=== PATIENT | male | born 1950 | race Caucasian/White ===

== ENCOUNTER 2016-12-30 09:18 | Outpatient (CLI) | payer MEDICARE, OTHER | END 2016-12-30 09:19 | disposition home or self-care (01) | DX: R97.20 Elevated prostate specific antigen [PSA] (principal); C67.9 Malignant neoplasm of bladder, unspecified ==

== ENCOUNTER 2017-03-29 13:34 | Outpatient (CLI) | payer MEDICARE, OTHER ==
--- NOTE | 2017-03-30 09:17 | XRAY Report ---
THREE-VIEW LEFT ELBOW: 03/29/2017 CLINICAL INDICATION: Pain, swelling. FINDINGS: AP, lateral, oblique views of the left elbow demonstrate mild osteoarthritis. There is no evidence of acute fracture. No effusion is present. Medial soft tissue swelling is seen. No radio paque foreign body is appreciated in the soft tissue. No osteolysis is present to suggest osteomyeli tis. IMPRESSION: MILD OSTEOARTHRITIS. SOFT TISSUE SWELLING, BUT NO EVIDENCE OF OSTEOMYELITIS OR FOREIGN BODY. JOB #: [id number] EXT JOB #:[id number]
== END 2017-03-29 13:35 | disposition home or self-care (01) ==
LOC: DI 13:34
PROVIDERS: ATTEND Nurse Practitioner Family
DX: M19.022 Primary osteoarthritis, left elbow (principal)

== ENCOUNTER 2017-07-09 18:18 | Emergency (ER) | payer MEDICARE, OTHER ==
[2017-07-09] MEDS ORDERED: KETOROLAC 60 MG/2 ML VIAL IVP STA (18:52)
--- NOTE | 2017-07-09 18:56 | ED Physician Documentation ---
PD HPI CHEST PAIN - Stated complaint Stated Complaint: CHEST PX - Chief complaint Chief Complaint: Cardiac - History obtained from History obtained from: Patient, Family - History of Present Illness Timing - onset: How many hours ago (5) Timing - onset during: Rest Timing - duration: Hours (5) Timing - details: Abrupt onset Pain level max: 8 Pain level now: 8 Quality: Aching, Pain Location: Substernal, Left chest Radiation: Other (non-radiating) Improved by: Rest Worsened by: Inspiration, Movement, Palpation Associated symptoms: No: Shortness of air, Diaphoresis, Nausea, Vomiting, Feeling faint / dizzy, General Weakness, Palpitations, Cough Similar symptoms before: Has not had sx before Recently seen: Not recently seen - Additional information Additional information: states tripped and fell into a chair 3 days ago, states pain worsened today. Review of Systems Ten Systems: 10 systems reviewed and negative Constitutional: denies: Fever, Chills Ears: denies: Ear pain Nose: denies: Rhinorrhea / runny nose, Congestion Throat: denies: Sore throat Cardiac: denies: Palpitations Respiratory: denies: Cough, Hemoptysis, Wheezing GI: denies: Abdominal Pain, Nausea, Vomiting, Diarrhea, Hematemesis, Bloody / black stool : denies: Dysuria Skin: denies: Rash Musculoskeletal: denies: Neck pain, Back pain Neurologic: denies: Focal weakness, Numbness, Headache PD PAST MEDICAL HISTORY - Past Medical History Cardiovascular: Hypertension Respiratory: None Neuro: None Endocrine/Autoimmune: None GI: Colon polyps, Hemorrhoids : Other HEENT: Chronic vision loss Psych: None Musculoskeletal: None Derm: Psoriasis - Past Surgical History Past Surgical History: Yes General: Colonoscopy, Other Ortho: Arthroscopic surgery, Spine surgery HEENT: Tonsil/Adenoidectomy - Present Medications Home Medications: Ambulatory Orders Medication Instructions Recorded Confirmed Gabapentin 300 mg PO BID 06/10/15 07/09/17 Lisinopril 20 mg PO DAILY 06/10/15 07/09/17 Multivitamin [Multivitamins] 1 each PO DAILY 11/25/15 07/09/17 Sildenafil Citrate [Sildenafil] 100 mg PO DAILY PRN 11/25/15 07/09/17 Aspirin [Aspir-Low] 81 mg PO DAILY 12/16/15 07/09/17 Betamethasone Dipropionate 15 gm TP PRN PRN 07/05/17 07/09/17 Baclofen 10 mg PO 07/09/17 Meloxicam [Mobic] 7.5 mg PO BID PRN #20 tablet 07/09/17 - Allergies Allergies/Adverse Reactions: Allergies Allergy/AdvReac Type Severity Reaction Status Date / Time No Known Drug Allergies Allergy Verified 07/09/17 18:32 - Social History Does the pt smoke?: No Smoking Status: Never smoker Does the pt have substance abuse?: No - Immunizations Immunizations are current?: Yes PD ED PE NORMAL - Vitals Vital signs reviewed: Yes - General General: Alert and oriented X 3, No acute distress, Well developed/nourished - HEENT HEENT: PERRL, Moist mucous membranes - Neck Neck: Supple, no meningeal sign - Cardiac Cardiac: RRR, No murmur, No rub, Strong equal pulses - Respiratory Respiratory: No respiratory distress, Clear bilaterally - Abdomen Abdomen: Soft, Non tender, Non distended - Derm Derm: Warm and dry, No rash - Extremities Extremities: No edema, No calf tenderness / cord - Neuro Neuro: Alert and oriented X 3 - Psych Psych: Normal mood, Normal affect - Free text exam Free text exam: TTP across the anterior, upper chest wall. Reproduces his pain. Results - Vitals Vitals: Vital Signs - 24 hr 07/09/17 07/09/17 18:27 20:12 Temperature 36.9 C Heart Rate 53 L 62 Respiratory 20 18 Rate Blood Pressure 153/78 H 148/83 H O2 Saturation 96 94 Oxygen O2 Source Room air - EKG (time done) 1828 Rate: Rate (enter#) (56) Rhythm: NSR Girard: Normal Intervals: Normal OK QRS: Normal Ischemia: Normal ST segments - Labs Labs: Laboratory Tests 07/09/17 07/09/17 07/09/17 19:01 19:01 19:01 WBC 7.5 RBC 4.89 Hgb 15.2 Hct 44.3 MCV 90.7 MCH 31.1 H MCHC 34.3 RDW 14.6 Plt Count 155 MPV 7.8 Neut # 6.0 Lymph # 0.8 L Hancock # 0.5 Eos # 0.1 Baso # 0.0 Absolute Nucleated RBC 0.00 Nucleated RBC % 0.0 Sodium 138 Potassium 3.6 Chloride 104 Carbon Dioxide 24 Anion Gap 10.0 BUN 16 Creatinine 0.8 Estimated GFR (MDRD) 97 Glucose 98 Calcium 9.6 Total Bilirubin 0.5 AST 19 ALT 20 Alkaline Phosphatase 59 Troponin I < 0.04 Total Protein 6.9 Albumin 4.3 Globulin 2.6 Albumin/Globulin Ratio 1.7 Lipase 24 - Rads (name of study) cxr Radiology: Prelim report reviewed, EMP read contemporaneously, See rad report ( NAD) PD MEDICAL DECISION MAKING - ED course Complexity details: reviewed results, re-evaluated patient, considered differential (No ST elevation [place], no aortic dissection, no PE, no tension pneumothorax, no aortic aneurysm), d/w patient, d/w family ED course: Patient is a 67-year-old gentleman who presents to the emergency department with chest pain, appears to be chest wall pain. Worse with movement and breathing. No acute findings on EKG, chest x-ray. Pain greatly improved with Toradol. Will place on anti-inflammatories for home. No evidence of acute coronary syndrome, pulmonary embolus. No evidence of pneumothorax or hemothorax. Patient and family counseled regarding signs and symptoms for which I believe and urgent re-evaluation would be necessary. Patient with good understanding of and agreement to plan and is comfortable going home at this time This document was made in part using voice recognition software. While efforts are made to proofread this document, sound alike and grammatical errors may occur. No history of blood clots. No recent travel. No immobilization or surgery Departure - Departure Disposition: 01 Home, Self Care Clinical Impression: Chest wall pain Condition: Good Instructions: ED Contusion Chest Wall Follow-Up: Josemanuel Hurst MD [Primary Care Provider] - Within 1 week Prescriptions: Meloxicam [Mobic] 7.5 mg PO BID PRN #20 tablet PRN Reason: pain Comments: This should improve over the next few days. Return if you worsen. Discharge Date/Time: 07/09/17 20:24
[2017-07-09] MEDS ORDERED: KETOROLAC 30 MG/ML VIAL ONE (19:02)
[2017-07-09 19:35] LABS: BASOPHILS % (AUTO) 0.5 %; EOSINOPHILS # (AUTO) 0.1 10^3/uL (0.0-0.7); HCT - HEMATOCRIT 44.3 % (42.0-52.0); HGB - HEMOGLOBIN 15.2 g/dL (14.0-18.0); LYMPHOCYTES # (AUTO) 0.8 10^3/uL (1.5-3.5); LYMPHOCYTES % (AUTO) 11.1 %; MEAN CORPUSCULAR HEMOGLOBIN 31.1 pg (27.0-31.0); MEAN CORPUSCULAR HGB CONC 34.3 g/dL (32.0-36.0); MEAN CORPUSCULAR VOLUME 90.7 fL (80.0-94.0); MEAN PLATELET VOLUME 7.8 fL (7.4-11.4); MONOCYTES # (AUTO) 0.5 10^3/uL (0.0-1.0); MONOCYTES % (AUTO) 6.8 %; NEUTROPHILS % (AUTO) 80.6 %; RED BLOOD COUNT 4.89 10^6/uL (4.70-6.10); RED CELL DISTRIBUTION WIDTH 14.6 % (12.0-15.0); UNCORRECTED WHITE BLOOD COUNT 7.5 x10^3/uL; WHITE BLOOD COUNT 7.5 x10^3/uL (4.8-10.8)
[2017-07-09 19:44] LABS: ALBUMIN/GLOBULIN RATIO 1.7 (1.0-2.2); BILIRUBIN,TOTAL 0.5 mg/dL (0.2-1.0); CALCIUM 9.6 mg/dL (8.5-10.3); CREATININE 0.8 mg/dL (0.6-1.2); POTASSIUM 3.6 mmol/L (3.5-5.0); TOTAL PROTEIN 6.9 g/dL (6.7-8.2)
--- NOTE | 2017-07-09 19:46 | XRAY Preliminary Report ---
Exam: XR CHEST 1 VIEW IMPRESSION: Mildly low lung volumes. [facility] SITE ID: [id number]
--- NOTE | 2017-07-09 19:57 | XRAY Report ---
EXAM: CHEST RADIOGRAPHY EXAM DATE: 07/09/2017 07:11 p.m. CLINICAL HISTORY: Chest pain after a fall. COMPARISON: 03/15/2016. TECHNIQUE: 1 view. FINDINGS: Lungs/Pleura: Moderate elevation of both hemidiaphragms. Small amount of plate-like atelectasis at th e right base. No vascular congestion, pneumothorax nor effusion. Mediastinum: Within exam limitations, the cardiomediastinal contour is normal. Other: None. IMPRESSION: Mildly low lung volumes. [facility] Referring Provider Line: [phone] SITE ID: [id number]
[2017-07-09 20:14] VITALS: BP 148/83
== END 2017-07-09 20:24 | disposition home or self-care (01) ==
LOC: ED 18:18
DX: R07.89 Other chest pain (principal); I10 Essential (primary) hypertension; Z79.82 Long term (current) use of aspirin; Z91.81 History of falling
CPT/HCPCS: 36415; 71010; 80053; 83690; 84484; 85025; 93005; 96374; 99284; 99285

== ENCOUNTER 2017-11-14 08:26 | Day surgery (SDC) | payer MEDICARE, OTHER ==
[2017-11-14] MEDS ORDERED: LACTATED RINGERS 1,000 ML IV ONE ×2 (08:31→10:36)
[2017-11-14] MEDS ORDERED: MIDAZOLAM 2 MG/2 ML VIAL IVP ONE (09:58)
[2017-11-14] MEDS ORDERED: fentaNYL 100 MCG/2 ML VIAL IVP ONE (09:58)
[2017-11-14 11:36] VITALS: BP 132/73
== END 2017-11-14 08:27 | disposition home or self-care (01) ==
LOC: SDS 08:26
PROVIDERS: ATTEND Surgery
PROC: 0DBK8ZX Excision of Ascending Colon, Via Natural or Artificial Opening Endoscopic, Diagnostic (ICD-10-PCS; 2017-11-14)
PROC: 0DBP8ZX Excision of Rectum, Via Natural or Artificial Opening Endoscopic, Diagnostic (ICD-10-PCS; principal; 2017-11-14 09:45)
DX: K57.30 Diverticulosis of large intestine without perforation or abscess without bleeding (principal); D21.4 Benign neoplasm of connective and other soft tissue of abdomen; K62.1 Rectal polyp; Z85.51 Personal history of malignant neoplasm of bladder; E78.5 Hyperlipidemia, unspecified; I10 Essential (primary) hypertension; Z85.79 Personal history of other malignant neoplasms of lymphoid, hematopoietic and related tissues; Z79.82 Long term (current) use of aspirin; Z87.891 Personal history of nicotine dependence
CPT/HCPCS: 45380; 45385; J7120

== ENCOUNTER 2019-08-16 15:12 | Emergency (ER) | payer MEDICARE, OTHER ==
--- NOTE | 2019-08-16 15:46 | ED Physician Documentation ---
History of Present Illness - Stated complaint Stated Complaint: ALLERGIC REACTION - Chief complaint Chief Complaint: Allergic Rx - History obtained from History obtained from: Patient, Family - History of Present Illness Timing: How many days ago (several days) Pain level max: 0 Pain level now: 0 - Additonal information Additional information: 69-year-old male presents to the emergency department with a rash. He is on Revlimid and daratumumab. States that he spoke with his oncologist 2 days ago and was told to take Benadryl. He states the rash is still persisting. Came to the emergency department for evaluation. He is supposed to have his next dose of chemotherapy tomorrow. No respiratory distress. No throat swelling. He takes dexamethasone once a week. Nothing makes this better or worse Review of Systems Constitutional: denies: Fever, Chills Nose: denies: Rhinorrhea / runny nose, Congestion Throat: denies: Sore throat Cardiac: denies: Palpitations Respiratory: denies: Dyspnea, Cough GI: denies: Abdominal Pain, Nausea, Vomiting : denies: Dysuria Skin: reports: Rash Musculoskeletal: denies: Neck pain, Back pain Neurologic: denies: Headache PD PAST MEDICAL HISTORY - Past Medical History Past Medical History: Yes Cardiovascular: Hypertension Respiratory: None Endocrine/Autoimmune: None GI: GERD, Colon polyps, Hemorrhoids : Benign prostate hypertrophy, Other HEENT: Chronic vision loss Psych: None Musculoskeletal: None Derm: Psoriasis - Past Surgical History Past Surgical History: Yes General: Colonoscopy, Other Ortho: Arthroscopic surgery, Spine surgery HEENT: Tonsil/Adenoidectomy - Present Medications Home Medications: Ambulatory Orders Medication Instructions Recorded Confirmed Gabapentin 300 mg PO BID 06/10/15 08/07/19 Lisinopril 20 mg PO DAILY 06/10/15 08/07/19 Multivitamin [Multivitamins] 1 each PO DAILY 11/25/15 08/07/19 Betamethasone Dipropionate 15 gm TP PRN PRN 07/05/17 08/07/19 Calcium Carbonate [Calcium] 1 tab PO BID 10/04/17 08/07/19 Turmeric Root Extract [Turmeric] 1 cap PO DAILY 01/03/18 08/07/19 dexAMETHasone [Dexamethasone] 20 mg ORAL PRN PRN 07/25/19 08/07/19 Lenalidomide [Revlimid] 15 mg PO DAILY 07/26/19 08/07/19 Methylprednisolone [Medrol Dose 20 mg PO DAILY PRN 08/09/19 08/09/19 Pack] hydrOXYzine PAMOATE [Vistaril] 25 mg PO Q6H PRN #20 capsule 08/16/19 predniSONE [Deltasone] 10 mg PO [id number] #42 tab 08/16/19 - Allergies Allergies/Adverse Reactions: Allergies Allergy/AdvReac Type Severity Reaction Status Date / Time No Known Drug Allergies Allergy Verified 08/16/19 15:20 - Social History Does the pt smoke?: No Smoking Status: Never smoker Does the pt have substance abuse?: No - Immunizations Immunizations are current?: Yes - POLST Patient has POLST: No PD ED PE NORMAL - Vitals Vital signs reviewed: Yes - General General: Alert and oriented X 3, No acute distress - HEENT HEENT: Moist mucous membranes - Neck Neck: Supple, no meningeal sign - Cardiac Cardiac: RRR - Respiratory Respiratory: No respiratory distress, Clear bilaterally - Derm Derm: Warm and dry - Extremities Extremities: Other (Erythematous, blanching rash to the forehead and scalp. No urticaria. No evidence of infection.) - Neuro Neuro: Alert and oriented X 3 Results - Vitals Vitals: Vital Signs - 24 hr 08/16/19 15:15 Temperature 36.6 C Heart Rate 76 Respiratory 16 Rate Blood Pressure 129/60 O2 Saturation 97 Oxygen O2 Source Room air PD MEDICAL DECISION MAKING - ED course Complexity details: reviewed old records, re-evaluated patient, considered differential, d/w patient, d/w family ED course: Discussed the case with Dr. Hill, oncology on-call, recommend starting a steroid taper. We will also place him on hydroxyzine for the itching. Patient is well-appearing, nontoxic. Afebrile. No anaphylaxis. Patient counseled regarding signs and symptoms for which I believe and urgent re-evaluation would be necessary. Patient with good understanding of and agreement to plan and is comfortable going home at this time This document was made in part using voice recognition software. While efforts are made to proofread this document, sound alike and grammatical errors may occur. He will follow-up with Dr. Garrett tomorrow for discussion of whether to continue the chemotherapy or not. Departure - Departure Disposition: 01 Home, Self Care Clinical Impression: Reaction, drug, adverse Qualifiers: Encounter type: initial encounter Qualified Code(s): T50.905A - Adverse effect of unspecified drugs, medicaments and biological substances, initial encounter Multiple myeloma Qualifiers: Multiple myeloma remission status: unspecified Qualified Code(s): C90.00 - Multiple myeloma not having achieved remission Condition: Good Instructions: ED Drug React Adverse Other Follow-Up: Josemanuel Hurst MD [Primary Care Provider] - Lisa Garrett MD [Physician No Access] - Lisa Garrett MD [Provider Admit Priv/Credential] - Prescriptions: hydrOXYzine PAMOATE [Vistaril] 25 mg PO Q6H PRN #20 capsule PRN Reason: itching predniSONE [Deltasone] 10 mg PO [id number] #42 tab Comments: I spoke with Dr. Hill on-call today for Dr. Alejo. We will start you on a steroid taper. You can contact her office tomorrow for further instructions.
[2019-08-16] MEDS ORDERED: predniSONE 20 MG TABLET PO STA (16:00)
[2019-08-16] MEDS ORDERED: hydrOXYzine PAMOATE 25 MG CAPSULE PO STA (16:00)
[2019-08-16 16:21] VITALS: BP 134/84
== END 2019-08-16 16:21 | disposition home or self-care (01) ==
LOC: ED 15:12
DX: L27.1 Localized skin eruption due to drugs and medicaments taken internally (principal); T45.1X5A Adverse effect of antineoplastic and immunosuppressive drugs, initial encounter; C90.00 Multiple myeloma not having achieved remission; I10 Essential (primary) hypertension
CPT/HCPCS: 99283; 99284; A9270; J7512

== ENCOUNTER 2019-10-01 11:43 | Emergency (ER) | payer MEDICARE, OTHER ==
--- NOTE | 2019-10-01 14:22 | ED Physician Documentation ---
History of Present Illness - Stated complaint Stated Complaint: LT LEG PX,SWELLING - Chief complaint Chief Complaint: Heent - History obtained from History obtained from: Patient - History of Present Illness Timing: Last night Pain level max: 3 Pain level now: 3 - Additonal information Additional information: 69-year-old male has noticed swelling to the left lower extremity. He is currently undergoing chemotherapy for multiple myeloma. No chest pain. No shortness of breath. No recent illnesses. No recent surgery or travel. He is not on blood thinners. No history of blood clot. Sent here to rule out DVT. Review of Systems Constitutional: denies: Fever, Chills GI: denies: Vomiting, Diarrhea Skin: denies: Rash Musculoskeletal: denies: Neck pain, Back pain Neurologic: denies: Focal weakness, Numbness PD PAST MEDICAL HISTORY - Past Medical History Past Medical History: Yes Cardiovascular: Hypertension Respiratory: None Neuro: None Endocrine/Autoimmune: None GI: Colon polyps, Hemorrhoids : Benign prostate hypertrophy, Other HEENT: Chronic vision loss Psych: None Musculoskeletal: None Derm: Psoriasis - Past Surgical History Past Surgical History: Yes General: Colonoscopy, Other Ortho: Spine surgery HEENT: Tonsil/Adenoidectomy - Present Medications Home Medications: Ambulatory Orders Medication Instructions Recorded Confirmed Gabapentin 300 mg PO BID 06/10/15 09/18/19 Lisinopril 20 mg PO DAILY 06/10/15 09/18/19 Multivitamin [Multivitamins] 1 each PO DAILY 11/25/15 09/18/19 Betamethasone Dipropionate 15 gm TP PRN PRN 07/05/17 09/18/19 Calcium Carbonate [Calcium] 1 tab PO BID 10/04/17 09/18/19 Turmeric Root Extract [Turmeric] 1 cap PO DAILY 01/03/18 09/18/19 dexAMETHasone [Dexamethasone] 20 mg ORAL PRN PRN 07/25/19 09/18/19 Lenalidomide [Revlimid] 15 mg PO DAILY 07/26/19 09/18/19 Methylprednisolone [Medrol Dose 20 mg PO DAILY PRN 08/09/19 09/18/19 Pack] hydrOXYzine PAMOATE [Vistaril] 25 mg PO Q6H PRN #20 capsule 08/16/19 09/18/19 predniSONE [Deltasone] 10 mg PO [id number] #42 tab 08/16/19 09/18/19 Baclofen 10 mg PO Q6H 09/18/19 09/18/19 Oxybutynin [Ditropan] 5 mg PO BID 09/18/19 09/18/19 polyethylene glycoL 3350 [Miralax] 17 gm PO DAILY 09/18/19 09/18/19 Rivaroxaban [Xarelto] 15 mg PO BID #42 tablet 10/01/19 - Allergies Allergies/Adverse Reactions: Allergies Allergy/AdvReac Type Severity Reaction Status Date / Time No Known Drug Allergies Allergy Verified 10/01/19 11:59 - Social History Does the pt smoke?: No Smoking Status: Never smoker ETOH Use: Beer Does the pt have substance abuse?: No Substance Use and Type: Other - Immunizations Immunizations are current?: Yes - POLST Patient has POLST: No PD ED PE NORMAL - Vitals Vital signs reviewed: Yes - General General: Alert and oriented X 3, No acute distress, Well developed/nourished - HEENT HEENT: Moist mucous membranes - Neck Neck: Supple, no meningeal sign - Cardiac Cardiac: RRR - Respiratory Respiratory: No respiratory distress, Clear bilaterally - Abdomen Abdomen: Soft, Non tender, Non distended - Derm Derm: Warm and dry - Extremities Extremities: Other (Moderate swelling to the left lower extremity from the mid thigh down to the toes. No calf tenderness. The left lower extremity is significantly swollen compared to the right. Neurovascular intact.) - Neuro Neuro: Alert and oriented X 3 - Psych Psych: Normal mood, Normal affect Results - Vitals Vitals: Vital Signs - 24 hr 10/01/19 10/01/19 10/01/19 11:59 12:03 15:34 Temperature 36.6 C 36.5 C 36.6 C Heart Rate 76 62 65 Respiratory 18 16 16 Rate Blood Pressure 122/73 113/61 127/71 O2 Saturation 98 98 98 Oxygen O2 Source Room air - Rads (name of study) Duplex ultrasound left lower extremity Radiology: Prelim report reviewed, EMP read contemporaneously, See rad report (NEw deep venous thrombosis in the left lower extremity from the femoral vein to the calf deep veins ) PD MEDICAL DECISION MAKING - ED course Complexity details: reviewed results, re-evaluated patient, considered differential, d/w patient, d/w consultant internship ED course: Patient with a DVT in the left lower extremity. Discussed the case with Dr. Padron, oncology. We will start the patient on Xarelto and have him transition to 20 mg of Xarelto daily after 3 weeks. No signs of infection. No shortness of breath. No chest pain. Patient counseled regarding signs and symptoms for which I believe and urgent re-evaluation would be necessary. Patient with good understanding of and agreement to plan and is comfortable going home at this time This document was made in part using voice recognition software. While efforts are made to proofread this document, sound alike and grammatical errors may occur. Departure - Departure Disposition: Home, Self Care Clinical Impression: DVT (deep venous thrombosis) Qualifiers: DVT location: lower extremity Affected thrombotic vein of extremity: unspecified vein of extremity Chronicity: acute Laterality: left Qualified Code(s): I82.402 - Acute embolism and thrombosis of unspecified deep veins of left lower extremity Condition: Good Instructions: ED DVT Follow-Up: Josemanuel Hurst MD [Primary Care Provider] - Within 1 week Prescriptions: Rivaroxaban [Xarelto] 15 mg PO BID #42 tablet Comments: Return if you worsen. We will start you on Xarelto 15 mg by mouth twice a day for 21 days. Your doctor will then need to transition you to 20 mg by mouth daily. Return for any signs of bleeding, blood in the stool, chest pain or shortness of breath. Refrain from any contact sports. If you fall and strike your head, you also need to be evaluated in the emergency department as this medication puts you at high risk for bleeding. Discharge Date/Time: 10/01/19 15:38
--- NOTE | 2019-10-01 14:28 | Ultrasound Report ---
Reason: LLE swelling Procedure Date: 10/01/2019 Accession Number: [id number] / [id number] Procedure: US - Duplex Ext Veins Left CPT Code: Addended Final Report FULL RESULT: EXAM: LEFT LOWER EXTREMITY VENOUS ULTRASOUND EXAM DATE: 10/01/2019 01:58 PM. CLINICAL HISTORY: LLE swelling. COMPARISON: DUPLEX EXT VEINS BILATERAL 03/15/2016 10:06 PM. TECHNIQUE: Real-time sonographic vascular imaging was performed by the carpenter repair through the lower extremity utilizing both color-flow and Doppler spectral analysis. Multiple enrollment representative static images were saved for review. FINDINGS: Common Femoral Vein (CFV): Normal. CFV-GSV Junction: Normal. Femoral Vein (FV) Prox: Thrombus present Femoral Vein (FV) Mid: Noncompressible thrombus Femoral Vein (FV) Dist: Noncompressible thrombus Popliteal Vein: Thrombus present Posterior Tibial Veins: Noncompressible thrombus Peroneal Veins: Noncompressible thrombus Other: None. IMPRESSION: NEw deep venous thrombosis in the left lower extremity from the femoral vein to the calf deep veins [facility] The critical result notification system was initiated by Dr. Abiodun Romero at 02:27 PM on 10/01/2019. ADDENDUM: 10/01/19 14:30 The above critical result findings were discussed with Garry Aaron by Dr. Abiodun Romero at 02:30 PM on 10/01/2019.
[2019-10-01 15:34] VITALS: BP 127/71
== END 2019-10-01 15:38 | disposition home or self-care (01) ==
LOC: ED 11:43
DX: I82.412 Acute embolism and thrombosis of left femoral vein (principal); I82.432 Acute embolism and thrombosis of left popliteal vein; I82.452 Acute embolism and thrombosis of left peroneal vein; I82.442 Acute embolism and thrombosis of left tibial vein; C90.00 Multiple myeloma not having achieved remission; I10 Essential (primary) hypertension
CPT/HCPCS: 99284

== ENCOUNTER 2019-10-17 14:34 | Outpatient (CLI) | payer MEDICARE, OTHER | END 2019-10-17 14:35 | disposition home or self-care (01) | LOC: LAB.S 14:34 | PROVIDERS: ATTEND Urology | DX: R97.20 Elevated prostate specific antigen [PSA] (principal) | CPT/HCPCS: 36415; G0103; 84153 ==

== ENCOUNTER 2019-10-26 09:53 | Outpatient (CLI) | payer MEDICARE, OTHER ==
--- NOTE | 2019-11-06 11:55 | DEXA Report ---
Reason: OSTEOPOROSIS, PATIENT HIGH DENSITY IN BACK L3-L4 FX Procedure Date: 10/26/2019 Accession Number: [id number] / [id number] Procedure: DEX - Dexa Forearm CPT Code: Final Report FULL RESULT: EXAM: Dexa Spine and/or Hip, Dexa Forearm DATE: 10/26/2019 12:24 PM CLINICAL HISTORY: OSTEOPOROSIS TECHNIQUE: Dual energy x-ray absorptiometry (DXA) was performed on a Ibetor System. Regions measured are the AP Spine, femoral neck, and if needed forearm. Form imaging is obtained due to scoliosis of the lumbar spine which limits diagnostic quality of DEXA images of the lumbar spine. COMPARISON: 08/29/2017. In accordance with the International Society for Clinical Densitometry (ISCD) guidelines, data from previous exams may be reanalyzed using current recommendations and techniques. This is done to allow a more accurate basis for comparison with the current study. FINDINGS: The data for the lumbar spine is as follows: BMD (g/cm/cm) T-SCORE Z-SCORE REGION L1 1.469 2.6 2.3 L2 1.470 1.9 1.7 L3 excluded L4 excluded TOTAL 1.470 2.2 2.0 NOTE: All evaluable vertebrae are used for classification The data for the hip is as follows: BMD (g/cm/cm) T-SCORE Z-SCORE REGION Neck 0.988 -0.6 0.0 TOTAL 0.951 -1.0 -0.8 NOTE: The femoral neck or total proximal femur, whichever is lowest, is used for classification. The data for the left forearm is as follows: BMD (g/cm/cm) T-SCORE Z-SCORE REGION 1/3 0.932 -0.6 0.2 NOTE: The 33% radius of the nondominant forearm is used for classification. DXA RESULTS SUMMARY: Spine SCAN DATE [age] BMD CHANGE VS CHANGE VS PREVIOUS PREVIOUS % 10[age]26/2019 [age] 1[age]470 0.060 4.3 08/29[birth year]2017 67.2 1[age]410 * Denotes significant change at the 95% confidence level. Denotes dissimilar scan types or analysis methods. DXA RESULTS SUMMARY: Hip SCAN DATE AGE BMD CHANGE VS CHANGE VS PREVIOUS PREVIOUS % 11/26/2019 69.4 0[age]951 0.014 1.5 08[birth year]29[birth year]2017 67.2 0.937 * Denotes significant change at the 95% confidence level. Denotes dissimilar scan types or analysis methods. IMPRESSION: THE WHO CLASSIFICATION BASED ON THE INTERNATIONAL REFERENCE STANDARD IS NORMAL. THE FRACTURE RISK IS NOT INCREASED. RECOMMENDATION: Patients with diagnosis of osteoporosis or osteopenia should have regular bone mineral density assessment. For those eligible for Medicare, routine testing is allowed once every 2 years. Testing frequency can be increased for patients who have rapidly progressing disease or for those who are receiving medical therapy to restore bone mass. COMMENT: World Health Organization (WHO) definitions for osteoporosis and osteopenia: NORMAL BMD: T-score at -1.0 or higher, fracture risk is low OSTEOPENIA BMD: T-score between -1.0 and -2.5, fracture risk is increased. OSTEOPOROSIS BMD: T-score at -2.5 or lower, fracture risk is high. National Osteoporosis Foundation recommends: 1. Obtain adequate dietary calcium (at least 1200 mg per day) and vitamin D (400-800 international units per day). 2. Participate, as appropriate, in regular weightbearing and muscle-strengthening exercise. 3. Avoid tobacco use and reduce alcohol and caffeine intake. 4. For more detailed information see the website at www.NOF.org.
== END 2019-10-26 09:54 | disposition home or self-care (01) ==
LOC: DI 09:53
PROVIDERS: ATTEND Registered Nurse
DX: M41.9 Scoliosis, unspecified (principal); Z79.52 Long term (current) use of systemic steroids; Z87.39 Personal history of other diseases of the musculoskeletal system and connective tissue
CPT/HCPCS: 77080; 77081

== ENCOUNTER 2020-03-08 09:30 | Outpatient (CLI) | payer MEDICARE, OTHER ==
--- NOTE | 2020-03-08 10:42 | Ultrasound Report ---
PROCEDURE: Duplex Ext Veins Left INDICATIONS: RULE OUT DVT TECHNIQUE: Real-time imaging, as well as color and pulse Doppler interrogation, were performed of the lower extr emity deep veins from the inguinal ligament to the popliteal fossa. COMPARISON: 10/01/2019. FINDINGS: Again noted is extensive venous thrombosis involving left superficial femoral vein extending to popli teal vein unchanged in appearance from previous study consistent with chronic deep venous thrombosis. Visualized portion of common femoral vein, greater saphenous vein and profundus femoris vein are pat ent without intraluminal filling defect. IMPRESSION: Chronic deep venous thrombosis in the left superficial femoral vein extending to the pop liteal vein. Reviewed by: Jonah Heath MD on 03/08/2020 10:41 AM PDT Approved by: Jonah Heath MD on 03/08/2020 10:41 AM PDT Station ID: [id number]
== END 2020-03-08 09:31 | disposition home or self-care (01) ==
LOC: DI 09:30
PROVIDERS: ATTEND Internal Medicine Hematology & Oncology
DX: I82.512 Chronic embolism and thrombosis of left femoral vein (principal)

== ENCOUNTER 2020-08-05 10:30 | Outpatient (CLI) | payer MEDICARE, OTHER ==
--- NOTE | 2020-08-05 15:34 | CONSULTATION NOTE ---
Palliative Care Consultation - Referral Referring Provider: Dr. Neeta Garrett Time of Visit: [id number] Referral setting: [facility] [place] Referral Reason: Pain of neoplastic origin/back pain/MM/Goals of Care - Information Sources Records reviewed: Previous records reviewed History/Review of Systems obtained from: Patient Exam limitations: No limitations - History of Present Illness Brief History of Present Illness: This is a 70-year-old gentleman who originally presented with severe back pain, had an MRI of the back and 2015, and showed a expansile lesion at L4 location extending to the left ventricular epidural space. 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 He had a laminectomy, he reports his pain was quite severe and unbearable at the time. He has had persistent back pain since this time, that has fluctuated over time, unfortunately it has continued to worsen and he is concerned for long-term implications and quality of life issues. He had originally had right sciatica pain, traveling down his right leg, did receive a cortisone injection for this several years ago, and it had resolved and not returned. He had come back for evaluation for cortisone in his left side, and was told he would not be a candidate and not be helpful. He has been on gabapentin as same dose 300 mg 3 times daily for consistently for the last several years, only thing is been added has been his baclofen, for leg cramping and hand cramping, he had tried to titrate back on this, and found it reoccurred. He is hesitant to consider opioids, his only experience so was actually with surgery, did not feel that this was effective. His pain appears neuropathic in nature, we discussed multiple options including but not limited to increasing gabapentin, switching to pregabalin for more rapid titration to effect, adding opioid, and considering low-dose methadone. Patient does do exercises faithfully daily, his pain is most noticeable when he has had standing for prolonged periods of time, is relieved with laying and sitting. He has had physical therapy in the past. Patient did have induction chemotherapy with VRD followed by autologous stem cell transplant in 05/2016. He has been on multiple different medications, but has been on maintenance duratumumab. He has not had any significant side effects though some persistent fatigue and intermittent constipation. He does have low- grade pancytopenia, and has had a side effect of left leg deep vein thrombosis when he was on Revlimid, has been on Eliquis, is due for further follow-up regarding his chronic neck thrombosis. His understanding is at that point in time he will transition to aspirin. He does understand that his multiple myeloma is in remission, is being followed by counts, and intermittent bone marrow biopsies. Medical/Surgical History - Past Medical History Cardiovascular: reports: Hypertension, Deep vein thrombosis (left leg on xarelto) Respiratory: reports: None Neuro: None Endocrine/Autoimmune: reports: None GI: reports: Colon polyps, Chronic constipation (with), Hemorrhoids : reports: Benign prostate hypertrophy, Other HEENT: reports: Chronic vision loss Psych: reports: None Musculoskeletal: reports: Fatigue, Chronic back pain Derm: reports: Psoriasis MRSA Hx?: No - Past Surgical History General: reports: Colonoscopy Ortho: reports: Spine surgery HEENT: reports: Tonsil/Adenoidectomy - Substance History Use: Uses substance without health or social issues: Tobacco (hx of smoking; quit 8 years ago) Social History - Living Situation Living arrangement: At home Living Situation: With spouse/s.o. 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 He moved to [facility] 25 years ago to help his elderly parents, who have since . He is been for 25 years, he does have 2 stepchildren with good relationships. He does have 2 important hobbies, when his woodworking, which is chronic pain with standing and lifting can interfere with, as well as riding his motorcycle. Family History - Family History Family History: Mother: ( 92 of heart failure), CAD ( in sleep at age 94), Father: Medications/Allergies - Medications Home Medications: Ambulatory Orders Medication Instructions Recorded Confirmed Gabapentin 300 mg PO TID 06/10/15 08/05/20 Lisinopril 20 mg PO DAILY 06/10/15 08/05/20 Multivitamin [Multivitamins] 1 each PO DAILY 11/25/15 08/05/20 Betamethasone Dipropionate 15 gm TP PRN PRN 07/05/17 08/05/20 Calcium Carbonate [Calcium] 1 tab PO BID 10/04/17 08/05/20 Turmeric Root Extract [Turmeric] 1 cap PO DAILY 01/03/18 08/05/20 Baclofen 10 mg PO TID 09/18/19 08/05/20 Tamsulosin HCl [Flomax] 0.4 mg PO DAILY 11/13/19 08/05/20 Acyclovir 400 mg PO BID 12/10/19 08/05/20 Rivaroxaban [Xarelto] 20 mg PO DAILY 04/24/20 08/05/20 - Allergies Allergies/Adverse Reactions: Allergies Allergy/AdvReac Type Severity Reaction Status Date / Time No Known Drug Allergies Allergy Verified 08/05/20 10:21 Review of Systems - Constitutional Constitutional: reports: Fatigue, Weight gain. denies: Fever, Chills - Eyes Eyes: reports: Vision loss, Corrective lenses - Ears, Nose & Throat Ears, Nose & Throat: denies: Mouth lesions - Cardiovascular Cardiovascular: reports: Edema (left ankle/leg swelling), Lightheadedness (intermittent for several years; worsens with pain) - Respiratory Respiratory: denies: SOB at rest - Gastrointestinal Gastrointestinal: reports: Constipation (noted after tx; uses Miralax a few days with good results), Good appetite. denies: Nausea - Genitourinary Genitourinary: reports: Other (hx of bladder cancer) - Musculoskeletal Musculoskeletal: reports: Muscle pain, Back pain, Stiffness, Limited range of motion, Joint pain (right hip) - Integumentary Integumentary: reports: Dryness - Neurological Neurological: reports: Numbness (hands and feet from previous tx) - Psychiatric Psychiatric: reports: Anxiety. denies: Depression - Hematologic/Lymphatic Hematologic/Lymph: Anemia - All Other Systems All Other Systems: reports: Reviewed and negative Physical Exam - Vital Signs Temperature: 36.4 C Pulse Rate: 65 Respiratory Rate: 18 Blood Pressure: 130/66 - Physical Exam General Appearance: positive: No acute distress, Alert Eyes Bilateral: positive: Normal inspection ENT: positive: Other (masked) Neck: positive: Trachea midline Respiratory: positive: No respiratory distress Abdomen: positive: Soft, Obese Skin: positive: Pallor Extremities: positive: Pedal edema (left greater than right; has compression sock on) Neurologic/Psychiatric: positive: Oriented x3, Mood/affect nml, Flat affect Palliative Care - POLST Patient has POLST: No Pain: Pain worsening, Location, Comment (Discussed functionality regarding functional goals for pain management, which would be improved and decrease pains standing for longer periods of time, able to walk further distances, he does do the treadmill 20 minutes 3 times a week.) Tiredness/Fatigue: Mild (1-3) Drowsiness/Sedation: Mild (1-3) Nausea: None Anorexia: None Dyspnea: None Depression: None Anxiety: None Feelings of wellbeing/Perceived Quality of Life: Good, Acceptable, Comment (feels would improve QOL if pain level improved) Sleep: Sleep improved (currently using melatonin and CBD with good control; no longer on decadron which was interfering) Constipation: Yes, Managed Performance Status: Patient is fairly independent in his ADLs, can walk for fairly long distances, though does have to pace himself related to pain. He is driving, as well as rides a motorcycle from time to time. I would put him at a PPS 80% - Palliative Care Discussion: Patient is quite thankful he continues to have treatment for his multiple myeloma, he does understand there is some uncertainty regarding this. He is currently in remission, he does have a durable power of health corporate associate attorney and directive, with his as primary, and his stepchildren as alternatives. He does favor quality of life over quantity of life, and is somewhat fearful of uncontrolled pain given his presenting symptoms. He has had experience with hospice for his father, his mother in her sleep. He does perceive he is good current quality of life, but could be improved with better pain management. Results - Lab Results Lab results reviewed: Yes Impression and Recommendations - Palliative Care Impression: This is a 70-year-old gentleman with multiple myeloma, status post autologous stem cell transplant 05/2016. He is currently in remission, and on maintenance daratumumab every 4 weeks, since 02/2020. Has known L5 myeloma bone lesion, status post laminectomy, with residual chronic back pain, and left hip pain. Palliative care has been asked to see patient regarding management of his back pain, and ongoing support. Recommendations/Counseling Done: 1. Back pain. Counseling provided regarding multiple options as far as pursuing, patient is already seeing interventionalists, do not feel like injection will be of help. He has done physical therapy, continues to be fairly consistent in his daily exercises and keeping his core strength up. He does do the treadmill 3 times a week, but is interested in improving his pain management. It does interfere with his activities that bring him pleasure, including woodworking, as well as causes him some distress. After much discussion, will trial transitioning given his neuropathic component of his pain, to pregabalin. equianalgesic is 300 mg of gabapentin to 50 mg of pregabalin, then titrate up every 4-5 days. Patient is concerned because has intermittent dizziness, suspect more likely related to the baclofen. Will suggest titrate down on dosing, after evaluating initial response. Patient with good kidney function, may also has consider adding meloxicam. Patient without any imaging regarding backslash spine, unclear if residual chronic back pain versus lesion. Will follow up with oncology regarding etiology.Patient identifies pain in lumbar area as well as left pelvic hip region, if active lesion may benefit from radiation. 2. Constipation. Patient is using MiraLAX appropriately for intermittent constipation, should not need more aggressive bowel program with switch to gabapentin. 3. Advanced care planning. Patient does have a fairly in-depth DPOA/directive document. We will continue to explore goals of care, patient's preferred preferences on quality of life issues over quantity and her initial discussion. We will continue to explore, as in the setting of rapport today. Time Spent: 60 minutes with greater than 50% of this done in introduction of palliative care, counseling regarding pain and symptom management, setting of rapport, and anticipatory guidance
== END 2020-08-05 10:31 | disposition home or self-care (01) ==
LOC: PC 10:30
PROVIDERS: ATTEND Nurse Practitioner Adult Health
DX: Z51.5 Encounter for palliative care (principal); G89.3 Neoplasm related pain (acute) (chronic); M54.9 Dorsalgia, unspecified; C90.01 Multiple myeloma in remission; K59.00 Constipation, unspecified; I10 Essential (primary) hypertension; Z87.891 Personal history of nicotine dependence
CPT/HCPCS: 99205

== ENCOUNTER 2020-08-26 10:22 | Outpatient (CLI) | payer MEDICARE, OTHER ==
--- NOTE | 2020-08-26 16:15 | XRAY Report ---
PROCEDURE: Pelvis 1 View INDICATIONS: BACK PAIN, WORSENING PAIN W/MULTIPLE MYELOMA TX TECHNIQUE: 1 view(s) of the pelvis acquired. COMPARISON: Plain film examination dated 08/18/2015 FINDINGS: Bones: No fractures or dislocations. No suspicious bony lesions. Mild hip joint space narrowing an d periarticular osteophyte formation is present bilaterally. Soft tissues: Visualized bowel gas pattern is normal. No suspicious soft tissue calcifications. IMPRESSION: Mild bilateral hip osteoarthritis. No acute fracture. No osseous lesion. If symptoms and /or clinical suspicion for pathology continue, further assessment with repeat plain films, or advance d imaging (e.g., CT, MRI, or bone scan) is recommended for further assessment. Reviewed by: Betty Rosario MD on 08/26/2020 4:13 PM PST Approved by: Betty Rosario MD on 08/26/2020 4:13 PM PST Station ID: [id number]
--- NOTE | 2020-08-26 17:09 | XRAY Report ---
PROCEDURE: Lumbar Spine Complete INDICATIONS: BACK PAIN, WORSENING PAIN W/MULT. MYELOMA TECHNIQUE: 5 views of the lumbar spine were acquired. COMPARISON: None. FINDINGS: Bones: Diffuse demineralization precludes good evaluation of the vertebral bodies by radiograph. 5 n [id number] vertebrae are present. There is severe, chronic appearing asymmetric L4 vertebral body compression resulting in marked dextroscoliosis. There are large bridging right-sided osteophyte fro m L2 on 3 and mild left lateral subluxation of L2 on 3. Grade 1 retrolisthesis L3 on 4. Multilevel di sc height loss. Soft tissues: Overlying bowel gas pattern is normal. No suspicious soft tissue calcifications. IMPRESSION: 1. Severe chronic appearing degenerative changes lumbar spine. 2. Diffuse demineralization precludes good evaluation of the mineralization by radiograph. If there i s continued concern, MR imaging of the lumbar spine is recommended unless there are contraindications to MRI in which case CT imaging could be performed. Reviewed by: Amy Ashford MD on 08/26/2020 5:07 PM PST Approved by: Amy Ashford MD on 08/26/2020 5:07 PM PST Station ID: [id number]
== END 2020-08-26 10:23 | disposition home or self-care (01) ==
LOC: DI 10:22
PROVIDERS: ATTEND Nurse Practitioner Adult Health
DX: M47.816 Spondylosis without myelopathy or radiculopathy, lumbar region (principal); M16.0 Bilateral primary osteoarthritis of hip; C90.00 Multiple myeloma not having achieved remission; I82.412 Acute embolism and thrombosis of left femoral vein; I82.432 Acute embolism and thrombosis of left popliteal vein

== ENCOUNTER 2020-08-26 10:22 | Outpatient (CLI) | payer MEDICARE, OTHER ==
--- NOTE | 2020-08-26 11:13 | Ultrasound Report ---
PROCEDURE: Duplex Ext Veins Left INDICATIONS: HISTORY OF DVT TECHNIQUE: Real-time imaging, as well as color and pulse Doppler interrogation, were performed of the lower extr emity deep veins from the inguinal ligament to the popliteal fossa. COMPARISON: None. FINDINGS: There is fully occlusive thrombus in the superficial femoral vein and popliteal vein. Remai carlos alberto deep veins of the thigh are free of thrombus. Calf veins are not well seen due to edema and habi tus. IMPRESSION: Acute fully occlusive DVT in the superficial femoral vein and popliteal vein. Reviewed by: Onesimo Campbell MD on 08/26/2020 11:12 AM PST Approved by: Onesimo Campbell MD on 08/26/2020 11:12 AM PST Station ID: [id number]
== END 2020-08-26 10:23 | disposition home or self-care (01) ==
LOC: DI 10:22
PROVIDERS: ATTEND Internal Medicine Hematology & Oncology
DX: I82.412 Acute embolism and thrombosis of left femoral vein (principal); I82.432 Acute embolism and thrombosis of left popliteal vein

== ENCOUNTER 2020-09-02 10:30 | Outpatient (CLI) | payer MEDICARE, OTHER ==
--- NOTE | 2020-09-02 16:30 | CONSULTATION NOTE ---
Palliative Care Follow Up - Referral Referring Provider: Dr. Neeta Garrett Time of Visit: 1030-11 Referral setting: [facility] [place] Reason: Pain of neoplastic origin/MM - Information Sources Records reviewed: Previous records reviewed History/Review of Systems obtained from: Patient Exam limitations: No limitations - History of Present Illness Update Brief HPI Update: Please see 08/05 for more extensive history. This is a 70-year-old gentleman with nonsecretory multiple myeloma with history of elevation of kappa light chain. He has had an autologous stem cell transplant, and currently is on maintenance daratumumab every 4 weeks since 02/2020. He has known L5 myeloma bone lesions status post laminectomy, with residual chronic back pain. And has had progressive back and hip pain, and was referred to palliative care for further support for pain management. He had been on gabapentin for 100 mg 3 times daily consistently for several years, is very hesitant to consider opioid therapy secondary to side effects of constipation and experience post surgery, he has been compliant and consistent in doing exercise program and treadmill. He is also complaining of persistent dizziness and mild sedation, he also takes baclofen for cramping. We did trial transitioning him over to pregabalin to equal analgesic dosing 50 mg 3 times daily, then increase to 100 mg 3 times daily, resulting in improved dizziness, and some improvement in pain management. Given also the severe degenerative changes, and achiness, added meloxicam 7.5 mg. He reports this has improved. He does complain of continued persistent pain on his right side, it actually only radiates to his knee, is exacerbating with persistent standing and activity, resolves after sitting or rest after 20 minutes, but for complete resolution it takes several hours. 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 Because of his worsening pain, did get some screening x-rays, of note he does have a bone spur at L2-L3, which would be reflective of his pain experience radiating down into his knee area. At this point in time he is somewhat satisfied with his current regimen, concern for long-term meloxicam use, because of the osteoarthritic deterioration in nature, patient is interested in further evaluation of physical therapy or modalities that might help him with pain management. Past Medical History: Induction chemotherapy VRD followed by autologous stem cell transplant 05/2016. DVT left leg, multiple myeloma stable, hypertension, colon polyps, BPH, chronic vision loss, history of bladder cancer, fatigue, chronic back pain, psoriasis, history of smoking quit 8 years ago. Social History - Living Situation Living arrangement: At home Living Situation: With spouse/s.o. 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 He moved 25 years ago to [facility] to help with his elderly parents, who have since . He has been for 25 years, he does have 2 stepchildren with good relationships. He has 2 important hobbies which is his woodworking, which is chronic pain with standing lifting can interfere with, as well as riding his motorcycle Medications/Allergies - Medications Home Medications: Ambulatory Orders Medication Instructions Recorded Confirmed Lisinopril 20 mg PO DAILY 06/10/15 09/02/20 Multivitamin [Multivitamins] 1 each PO DAILY 11/25/15 09/02/20 Betamethasone Dipropionate 15 gm TP PRN PRN 07/05/17 09/02/20 Calcium Carbonate [Calcium] 1 tab PO BID 10/04/17 09/02/20 Turmeric Root Extract [Turmeric] 1 cap PO DAILY 01/03/18 09/02/20 Baclofen 10 mg PO TID 09/18/19 09/02/20 Tamsulosin HCl [Flomax] 0.4 mg PO DAILY 11/13/19 09/02/20 Acyclovir 400 mg PO BID 12/10/19 09/02/20 Rivaroxaban [Xarelto] 20 mg PO DAILY 04/24/20 09/02/20 Meloxicam [Mobic] 7.5 mg PO DAILY 09/02/20 09/02/20 Pregabalin [Lyrica] 100 mg PO TID 09/02/20 09/02/20 - Allergies Allergies/Adverse Reactions: Allergies Allergy/AdvReac Type Severity Reaction Status Date / Time No Known Drug Allergies Allergy Verified 09/02/20 09:49 Review of Systems - Constitutional Constitutional: reports: Fatigue, Weight gain. denies: Fever, Chills - Eyes Eyes: reports: Vision loss, Corrective lenses - Ears, Nose & Throat Ears, Nose & Throat: reports: Hearing loss, Nasal congestion, Postnasal drainage - Cardiovascular Cardiovascular: reports: Edema, Decr. exercise tolerance - Respiratory Respiratory: denies: SOB at rest - Gastrointestinal Gastrointestinal: reports: Constipation (noted after tx; uses Miralax a few days with good results), Good appetite. denies: Nausea - Genitourinary Genitourinary: reports: Other (hx of bladder cancer; follow up with urology yearly) - Musculoskeletal Musculoskeletal: reports: Muscle pain, Back pain (improved with current regimen), Stiffness, Limited range of motion, Joint pain (right hip) - Integumentary Integumentary: reports: Dryness - Neurological Neurological: reports: Numbness (hands and feet from previous tx) - Psychiatric Psychiatric: reports: Anxiety. denies: Depression - Hematologic/Lymphatic Hematologic/Lymph: Anemia - All Other Systems All Other Systems: reports: Reviewed and negative Physical Exam - Vital Signs Temperature: 36.9 C Pulse Rate: 69 Respiratory Rate: 16 O2 Saturation: 100 Blood Pressure: 138/69 - Physical Exam General Appearance: positive: No acute distress, Alert Eyes Bilateral: positive: Normal inspection ENT: positive: Other (masked) Neck: positive: Trachea midline Respiratory: positive: No respiratory distress Abdomen: positive: Soft Skin: positive: Pallor Extremities: positive: Pedal edema (left greater than right; has compression sock on) Neurologic/Psychiatric: positive: Oriented x3, Mood/affect nml, Flat affect Palliative Care - POLST Patient has POLST: No Pain: Pain improved, Location (see hPI) Tiredness/Fatigue: Moderate (4-6) Drowsiness/Sedation: Mild (1-3) Nausea: None Anorexia: None, Weight loss (reports lots about 4 pounds but no further) Dyspnea: None Depression: None Anxiety: Mild (1-3) (living with chronic illness of MM; COVID) Feelings of wellbeing/Perceived Quality of Life: Fair, Acceptable Sleep: Sleep improved (uses CBD and melatonin) Constipation: Yes, Managed Performance Status: Patient is independent in his ADLs, does drive. Does walk on the treadmill 3 times a week, is interested in follow-up physical therapy. - Palliative Care Discussion: Patient goals are to continue to explore things to support his health and wellness, he admits to mild anxiety of living with chronic serious illness, recognizes at this point time he is doing fairly well and is grateful for this. He understands his disease is currently being managed, is not curable. Patient does have his DPOA and directives completed. Results - Lab Results Lab results reviewed: Yes Impression and Recommendations - Palliative Care Impression: This is a 70-year-old gentleman with multiple myeloma, status post autologous stem cell transplant 05/2016. He is currently in known maintenance daratumumab every 4 weeks, since 02/2020. He has known L5 myeloma bone lesion status post laminectomy, with residual chronic back pain and right hip pain. Palliative care providing support for pain management, have titrated medications, will add physical therapy and modalities. Palliative care continue provide support for pain and symptom management and anticipatory guidance. Recommendations/Counseling Done: 1. Back pain. Did transition from gabapentin to pregabalin with some improvement, patient's kidney function is within normal limits, did add meloxicam. Counseled regarding options pharmacologically, include neuropathic pain adjuvants, NSAIDs, and opioids. Patient may be a candidate for low-dose methadone if pain continues to escalate. Currently is interested in pursuing further physical therapy, will refer both for progressive home exercise program and adding other modalities. Patient does have severe chronic degenerative changes in his lumbar spine, as well as diffuse demineralization, will defer to oncology, but may need further evaluation through MRI of spine. 2. Anxiety. Patient expressing appropriate anxiety in the context of living with serious disease and pandemic. Patient does not present with any persistent symptoms of depression or SERGIO. Patient reports is getting good sleep with use of CBD and melatonin. 3. Advanced care planning. Patient does have DPOA/health directives in place. At this point in time no further need to expand on these. Palliative care to continue provide support and building of rapport. Time Spent: 30 minutes with greater than 50% of this done in counseling regarding pain and symptom management, will make physical therapy referral, and defer recommendation to oncology regarding MRI of his spine, though may be helpful in the near future.
== END 2020-09-02 10:31 | disposition home or self-care (01) ==
LOC: PC 10:30
PROVIDERS: ATTEND Nurse Practitioner Adult Health
DX: Z51.5 Encounter for palliative care (principal); G89.3 Neoplasm related pain (acute) (chronic); M54.9 Dorsalgia, unspecified; M25.551 Pain in right hip; M46.06 Spinal enthesopathy, lumbar region; M47.816 Spondylosis without myelopathy or radiculopathy, lumbar region; F41.9 Anxiety disorder, unspecified; C90.00 Multiple myeloma not having achieved remission; I10 Essential (primary) hypertension; Z79.899 Other long term (current) drug therapy; Z87.891 Personal history of nicotine dependence
CPT/HCPCS: 99215

== ENCOUNTER 2020-09-20 11:36 | Emergency (ER) | payer MEDICARE, OTHER ==
[2020-09-20] MEDS ORDERED: ceFAZolin 2 GM/50 ML 2 GM/50 ML BAG IV ONE (12:20)
--- NOTE | 2020-09-20 12:22 | ED Physician Documentation ---
PD HPI LOWER EXT INJURY - Stated complaint Stated Complaint: L LEG INJURY - Chief complaint Chief Complaint: Ext Problem - History obtained from History obtained from: Patient - Additional information Additional information: This is a 70-year-old gentleman who out 20 years ago broke his left tibia. He did not need surgery. A little over a year ago developed a DVT in that leg. He is still on Xarelto for same. About 4 or 5 nights ago his leg was itching and he scratched it a lot and then over the last couple of days it has become red and more swollen than usual. He always has some swelling in that leg because of a prior DVT and the remote injury. But now it is more than normal. He denies fevers or chills. He has been neutropenic recently because of his multiple myeloma and treatment. Last labs were done on September 01 with a total white count of 2 and 900 neutrophils. Review of Systems Ten Systems: 10 systems reviewed and negative Constitutional: denies: Fever, Chills Cardiac: denies: Chest pain / pressure, Palpitations Respiratory: denies: Dyspnea, Cough PD PAST MEDICAL HISTORY - Past Medical History Cardiovascular: Hypertension, Deep vein thrombosis Respiratory: None Neuro: None Endocrine/Autoimmune: None GI: Colon polyps, Chronic constipation, Hemorrhoids : Benign prostate hypertrophy, Other HEENT: Chronic vision loss Psych: None Musculoskeletal: Fatigue, Chronic back pain Derm: Psoriasis - Past Surgical History Past Surgical History: Yes General: Colonoscopy Ortho: Spine surgery HEENT: Tonsil/Adenoidectomy - Present Medications Home Medications: Ambulatory Orders Medication Instructions Recorded Confirmed Lisinopril 20 mg PO DAILY 06/10/15 09/20/20 Multivitamin [Multivitamins] 1 each PO DAILY 11/25/15 09/20/20 Betamethasone Dipropionate 15 gm TP PRN PRN 07/05/17 09/20/20 Calcium Carbonate [Calcium] 1 tab PO BID 10/04/17 09/20/20 Turmeric Root Extract [Turmeric] 1 cap PO DAILY 01/03/18 09/20/20 Baclofen 10 mg PO TID 09/18/19 09/20/20 Tamsulosin HCl [Flomax] 0.4 mg PO DAILY 11/13/19 09/20/20 Acyclovir 400 mg PO BID 12/10/19 09/20/20 Rivaroxaban [Xarelto] 20 mg PO DAILY 04/24/20 09/20/20 Meloxicam [Mobic] 7.5 mg PO DAILY 09/02/20 09/20/20 Pregabalin [Lyrica] 100 mg PO TID 09/02/20 09/20/20 Cephalexin [Keflex] 500 mg PO Q6H #28 capsule 09/20/20 Sildenafil Citrate [Sildenafil] 100 mg PO PRN PRN 09/20/20 09/20/20 - Allergies Allergies/Adverse Reactions: Allergies Allergy/AdvReac Type Severity Reaction Status Date / Time No Known Drug Allergies Allergy Verified 09/20/20 11:54 - Social History Does the pt smoke?: No Smoking Status: Never smoker Does the pt drink ETOH?: No Does the pt have substance abuse?: No Substance Use and Type: Marijuana, CBD oil / Products - Immunizations Immunizations are current?: Yes - POLST Patient has POLST: No PD ED PE NORMAL - Vitals Vital signs reviewed: Yes - General General: Alert and oriented X 3, No acute distress - HEENT HEENT: PERRL, EOMI - Neck Neck: Supple, no meningeal sign, No bony TTP - Cardiac Cardiac: RRR, No murmur - Respiratory Respiratory: No respiratory distress, Clear bilaterally - Abdomen Abdomen: Normal bowel sounds, Soft, Non tender - Back Back: No CVA TTP, No spinal TTP - Extremities Extremities: Other (There is significant swelling of the left leg below the knee. There is beet red cellulitis that seems to be emanating from an excoriated area on the lateral upper ankle. Normal pedal pulses.) - Neuro Neuro: Alert and oriented X 3, Normal speech Results - Vitals Vitals: Vital Signs - 24 hr 09/20/20 09/20/20 09/20/20 11:49 11:59 13:27 Temperature 36.6 C 36.3 C L 36.9 C Heart Rate 80 83 73 Respiratory 16 16 18 Rate Blood Pressure 131/72 H 132/65 H 120/62 O2 Saturation 97 98 98 Oxygen O2 Source Room air - Labs Labs: Laboratory Tests 09/20/20 09/20/20 09/20/20 12:35 12:35 12:35 WBC 3.1 L RBC 3.75 L Hgb 12.9 L Hct 37.6 L MCV 100.3 H MCH 34.4 H MCHC 34.3 RDW 14.5 Plt Count 84 L MPV 13.0 H Neut # (Auto) 2.0 Lymph # (Auto) 0.9 L Haakon # (Auto) 0.2 Eos # (Auto) 0.0 Baso # (Auto) 0.0 Absolute Nucleated RBC 0.00 Nucleated RBC % 0.0 Sodium 142 Potassium 3.8 Chloride 102 Carbon Dioxide 27 Anion Gap 13.0 BUN 18 Creatinine 0.9 Estimated GFR (MDRD) 84 L Glucose 128 H Lactic Acid 1.4 Calcium 9.2 PD MEDICAL DECISION MAKING - ED course ED course: 70-year-old gentleman on chemotherapy presents with what looks like a left leg cellulitis. He does have a history of DVT on that side and is maintained on Direct oral anticoagulants. An ultrasound was done showing unchanged venous thrombosis, suspect this is chronic finding. He received 2 g of Ancef IV in the department here. Departure - Departure Disposition: 01 Home, Self Care Clinical Impression: Cellulitis of left leg, Chronic venous thrombosis Condition: Good Record reviewed to determine appropriate education?: Yes Instructions: Cellulitis Dc Prescriptions: Cephalexin [Keflex] 500 mg PO Q6H #28 capsule Comments: Continue usual medications. Return if the redness worsens, if you develop general weakness, or any fevers or chills. Follow-up with your doctor this week for recheck.
[2020-09-20 12:51] LABS: BASOPHILS % (AUTO) 0.3 %; HGB - HEMOGLOBIN 12.9 g/dL (14.0-18.0); LYMPHOCYTES # (AUTO) 0.9 10^3/uL (1.5-3.5); LYMPHOCYTES % (AUTO) 27.8 %; MEAN CORPUSCULAR HEMOGLOBIN 34.4 pg (27.0-31.0); MEAN CORPUSCULAR HGB CONC 34.3 g/dL (32.0-36.0); MEAN CORPUSCULAR VOLUME 100.3 fL (80.0-94.0); MONOCYTES # (AUTO) 0.2 10^3/uL (0.0-1.0); MONOCYTES % (AUTO) 6.7 %; NEUTROPHILS % (AUTO) 64.9 %; PLT - PLATELET COUNT 84 10^3/uL (130-450); RED BLOOD COUNT 3.75 10^6/uL (4.70-6.10); RED CELL DISTRIBUTION WIDTH 14.5 % (12.0-15.0); WHITE BLOOD COUNT 3.1 x10^3/uL (4.8-10.8)
[2020-09-20 12:54] LABS: CALCIUM 9.2 mg/dL (8.5-10.3); CREATININE 0.9 mg/dL (0.6-1.2)
--- NOTE | 2020-09-20 14:21 | Ultrasound Report ---
PROCEDURE: Duplex Ext Veins Left INDICATIONS: LLE pain TECHNIQUE: Real-time imaging, as well as color and pulse Doppler interrogation, were performed of the lower extr emity deep veins from the inguinal ligament to the popliteal fossa. COMPARISON: 08/26/2020. FINDINGS: Occlusive venous thrombosis within left superficial femoral vein extending to popliteal vei n. Left calf veins are not well seen due to significant soft tissue edema. IMPRESSION: Occlusive venous thrombosis extending from proximal left superficial femoral vein to "po pliteal vein unchanged from previous study. Persistent left calf edema. Reviewed by: Jonah Heath MD on 09/20/2020 2:20 PM PST Approved by: Jonah Heath MD on 09/20/2020 2:20 PM PST Station ID: [id number]
[2020-09-20 14:38] VITALS: BP 121/68
== END 2020-09-20 14:43 | disposition home or self-care (01) ==
LOC: ED 11:36
DX: L03.116 Cellulitis of left lower limb (principal); I82.812 Embolism and thrombosis of superficial veins of left lower extremity; I82.532 Chronic embolism and thrombosis of left popliteal vein; Z79.01 Long term (current) use of anticoagulants; C90.00 Multiple myeloma not having achieved remission; Z79.899 Other long term (current) drug therapy; I10 Essential (primary) hypertension
CPT/HCPCS: 36415; 80048; 83605; 85025; 87040; 87150; 93971; 96365; 99284; J0690

== ENCOUNTER 2020-09-30 10:27 | Outpatient (CLI) | payer MEDICARE, OTHER ==
--- NOTE | 2020-09-30 18:09 | CONSULTATION NOTE ---
Palliative Care Follow Up - Referral Referring Provider: Dr. Neeta Garrett Time of Visit: [id number] [place] [facility] [place] Reason: Pain of neoplastic origin/MM - Information Sources Records reviewed: Previous records reviewed History/Review of Systems obtained from: Patient Exam limitations: No limitations - History of Present Illness Update Brief HPI Update: This is a 70-year-old gentleman with nonsecretory multiple myeloma, with history of elevation of kappa light change. He has had an autologous stem cell transplant, is currently on maintenance to root Mab every 4 weeks, since 02/2020. He originally presented with L5 myeloma bone lesion, status post laminectomy now with residual chronic back pain. Has had fluctuating progressive back and hip pain, is recently transition to pregabalin 100 mg 3 times daily, with meloxicam 15 mg, and uses baclofen 10 mg 3 times daily for longstanding muscle cramps and pain in his legs. Patient reports pain has improved, he still has some residual low back pain, but hip is improved, he is also added physical therapy and has felt this is been helpful. Unfortunately he did develop cellulitis in his left lower leg, is currently on 2 antibiotics but it is finally improving. He also has known DVT and is on blood thinners as well. Overall he presents in good spirits, engages well. Is feeling better overall. Is quite grateful for his current condition, has been somewhat tired by the pandemic fatigue. He is wondering whether he should receive a Covid shot, will reach out to his oncologist. Past Medical History: Autologous stem cell transplant 05/2016, DVT left leg, multiple myeloma currently stable, hypertension, colon polyps, BPH, chronic vision loss, history of bladder cancer, fatigue, chronic back pain, psoriasis, history of smoking quit 8 years ago. Social History - Living Situation Living arrangement: At home Living Situation: With spouse/s.o. Support System: Patient is , has been for 25 years. He has 2 stepchildren with good relationships, and 2 grandkids. They very much enjoyed the holiday. He has 2 important hobbies, which is woodworking which can exacerbate his chronic p ain, as well as riding his motorcycle. Medications/Allergies - Medications Home Medications: Ambulatory Orders Medication Instructions Recorded Confirmed Lisinopril 20 mg PO DAILY 06/10/15 10/02/20 Multivitamin [Multivitamins] 1 each PO DAILY 11/25/15 10/02/20 Betamethasone Dipropionate 15 gm TP PRN PRN 07/05/17 10/02/20 Calcium Carbonate [Calcium] 1 tab PO BID 10/04/17 10/02/20 Turmeric Root Extract [Turmeric] 1 cap PO DAILY 01/03/18 10/02/20 Baclofen 10 mg PO TID MDD titrating off 09/18/19 10/02/20 Tamsulosin HCl [Flomax] 0.4 mg PO DAILY 11/13/19 10/02/20 Acyclovir 400 mg PO BID 12/10/19 10/02/20 Rivaroxaban [Xarelto] 20 mg PO DAILY 04/24/20 10/02/20 Meloxicam [Mobic] 7.5 mg PO DAILY PRN 09/02/20 10/02/20 Pregabalin [Lyrica] 100 mg PO TID 09/02/20 10/02/20 Sildenafil Citrate [Sildenafil] 100 mg PO PRN PRN 09/20/20 10/02/20 cephALEXin [Keflex] 500 mg PO Q6H #28 capsule 09/20/20 10/02/20 Doxycycline Hyclate 100 mg PO BID 10/02/20 10/02/20 - Allergies Allergies/Adverse Reactions: Allergies Allergy/AdvReac Type Severity Reaction Status Date / Time No Known Drug Allergies Allergy Verified 09/30/20 10:03 Review of Systems - Constitutional Constitutional: reports: Fatigue, Weight gain. denies: Fever, Chills - Eyes Eyes: reports: Vision loss, Corrective lenses - Ears, Nose & Throat Ears, Nose & Throat: reports: Hearing loss - Cardiovascular Cardiovascular: reports: Edema (worsening in left leg with cellulitis). denies: Chest pain - Respiratory Respiratory: denies: Cough, SOB at rest - Gastrointestinal Gastrointestinal: reports: Constipation (noted after tx; uses Miralax a few days with good results), Good appetite. denies: Nausea - Genitourinary Genitourinary: reports: Other (hx of bladder cancer; follow up with urology yearly) - Musculoskeletal Musculoskeletal: reports: Muscle pain (not having cramping any more; wondering about tapering of baclofen), Back pain (improved with current regimen), Stiffness, Limited range of motion - Integumentary Integumentary: reports: Dryness, Other (cellulitis LLE) - Neurological Neurological: reports: Numbness (hands and feet from previous tx) - Psychiatric Psychiatric: reports: Anxiety. denies: Depression - Hematologic/Lymphatic Hematologic/Lymph: Anemia - All Other Systems All Other Systems: reports: Reviewed and negative Physical Exam - Vital Signs Temperature: 36.4 C Pulse Rate: 70 Respiratory Rate: 17 Blood Pressure: 119/61 - Physical Exam General Appearance: positive: No acute distress, Alert Eyes Bilateral: positive: Normal inspection ENT: positive: Other (masked) Neck: positive: Trachea midline Cardiovascular: positive: Regular rate & rhythm Respiratory: positive: No respiratory distress, Breath sounds nml Abdomen: positive: Non-tender, Soft Skin: positive: Pallor, Other (unable to observe leg with pant legs on) Extremities: positive: Pedal edema (left greater than right; worsened with infection) Neurologic/Psychiatric: positive: Oriented x3, Mood/affect nml Palliative Care - POLST Patient has POLST: No Pain: Pain improved, Severity (1/10) Tiredness/Fatigue: Moderate (4-6) Drowsiness/Sedation: Mild (1-3) Nausea: None Anorexia: None Dyspnea: None Depression: None Anxiety: Mild (1-3) Feelings of wellbeing/Perceived Quality of Life: Good, Acceptable, No change Sleep: Sleep improved, Variable sleep pattern Constipation: Yes, Opoid induced, Managed Performance Status: Patient has been feeling better, has done some progressive ambulation which has felt like he can walk more outside. He is independent in his ADLs, he is working with physical therapy weekly. - Palliative Care Discussion: Patient feels like he is doing well overall, did have a nice holidays. Does acknowledge gratefulness for just his current condition, though is somewhat overwhelmed by the pandemic. He does understand that his disease is not curable, that is being managed, and has many options. Results - Lab Results Lab results reviewed: Yes Impression and Recommendations - Palliative Care Impression: This is a dejuan 70-year-old gentleman with multiply myeloma, status post autologous stem cell transplant 05/2016. He is currently receiving maintenance daratumumab every 4 weeks, palliative care seen for symptom management. Patient has had improvement in his pain overall, has engaged in physical therapy with further improvement. Patient interested in titrating off medications and decreasing pill burden. Palliative care will continue provide support for pain and symptom management and anticipatory guidance. Recommendations/Counseling Done: 1. Back pain. Patient has done well and transition from gabapentin to pregabalin, Landing at 100 mg 3 times daily. Had added meloxicam, secondary to hip pain and osteoarthritic component, has been doing well with physical therapy. Recommended stop meloxicam for now, and evaluate response. Instructed long-term NSAIDs are best to be avoided, but can use intermittently. Patient does have severe degenerative changes in his lumbar spine, may need or benefit from meloxicam long-term. But will trial without it. 2. Muscle cramps. Patient reports no muscle cramps, is wondering about transitioning off baclofen. He has been on long-term, has stopped fairly abruptly previously with return to cramping. Instructed to decrease half tab weekly, until find lowest therapeutic dose, or completely off. 3. Cellulitis left lower extremity. Patient currently on 2 antibiotics, as is not responding to original cephalexin. Reports he is tolerating it fairly well, though of course puts him at high risk for C. difficile. Reviewed signs or symptoms for worsening issues, given his decreased immune system. Had as a result of the underlying etiology, has scratched his leg, because of dryness. Counseled to use CeraVe lotion after showering. 4. Time Spent: 45 minutes counseling regarding pain and symptom management and coordination of care with oncology team.
== END 2020-09-30 10:28 | disposition home or self-care (01) ==
LOC: PC 10:27
PROVIDERS: ATTEND Nurse Practitioner Adult Health
DX: Z51.5 Encounter for palliative care (principal); M54.9 Dorsalgia, unspecified; G89.3 Neoplasm related pain (acute) (chronic); L03.116 Cellulitis of left lower limb; C90.00 Multiple myeloma not having achieved remission; Z79.01 Long term (current) use of anticoagulants; Z87.891 Personal history of nicotine dependence
CPT/HCPCS: 99215

== ENCOUNTER 2020-11-25 10:06 | Outpatient (CLI) | payer MEDICARE, OTHER ==
--- NOTE | 2020-11-25 17:35 | CONSULTATION NOTE ---
Palliative Care Follow Up - Referral Referring Provider: Dr. Neeta Garrett Time of Visit: [id number] 30"'; review of records/labs 15"=45 minutes Referral setting: [facility] [place] Referral Reason: Pain of neoplastic origin/MM - Information Sources Records reviewed: Previous records reviewed History/Review of Systems obtained from: Patient Exam limitations: No limitations - History of Present Illness Update Brief HPI Update: This is a 70-year-old gentleman with nonsecretory multiple myeloma with history of elevation of kappa light chain. He has had an autologous stem cell transplant, and is currently on maintenance daratumumab every 4 weeks and 02/2020. He has a known L5 myeloma bone lesion status post laminectomy, with residual chronic back pain. Palliative care has been seeing him for his back pain, he is currently on pregabalin 100 mg 3 times daily. He was able to titrate off the baclofen successfully, with no return of cramping. He has also tolerated off of the meloxicam. He has felt like physical therapy has been significantly helpful, both with pain control and strengthening. He has updated his program which he is very adherent to. He reports his balance is better as well. His new complaint is he does have increased pain in his right foot concentrated around ankle and instep.He reports he had been standing for long period of time in the kitchen, this somehow triggered which has resulted in pain. He has increased pain with weightbearing and walking, it is slowly improving. The swelling is starting to improve as well. Is most likely attributed to his clot, he is gradually increasing his walking again. Patient is in good spirits, he is to get his Covid shot tomorrow. Denies any other significant symptoms or concerns, does report low-grade anxiety related both to his cancer and the pandemic restrictions/isolation. Past Medical History: Autologous stem cell transplant 05/2016, DVT left leg, multiple myeloma, hypertension, colon polyps, BPH, chronic vision loss, history of bladder cancer, fatigue, chronic back pain, psoriasis, history of smoking quit 8 years ago Social History - Living Situation Living arrangement: At home Living Situation: With spouse/s.o. 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 He has been to his for 25 years, has 2 stepchildren and 2 grandkids with good relationships. He has 2 significant hobbies, woodworking and motorcycles. He is hoping the pandemic will be moved enough along, he has a tentative rally set for February. He is to receive his Covid shot tomorrow. Medications/Allergies - Medications Home Medications: Ambulatory Orders Medication Instructions Recorded Confirmed Lisinopril 20 mg PO DAILY 06/10/15 11/25/20 Multivitamin [Multivitamins] 1 each PO DAILY 11/25/15 11/25/20 Betamethasone Dipropionate 15 gm TP PRN PRN 07/05/17 11/25/20 Calcium Carbonate [Calcium] 1 tab PO BID 10/04/17 11/25/20 Turmeric Root Extract [Turmeric] 1 cap PO DAILY 01/03/18 11/25/20 Tamsulosin HCl [Flomax] 0.4 mg PO DAILY 11/13/19 11/25/20 Acyclovir 400 mg PO BID 12/10/19 11/25/20 Rivaroxaban [Xarelto] 20 mg PO DAILY 04/24/20 11/25/20 Pregabalin [Lyrica] 100 mg PO TID 09/02/20 11/25/20 Sildenafil Citrate [Sildenafil] 100 mg PO PRN PRN 09/20/20 11/25/20 - Allergies Allergies/Adverse Reactions: Allergies Allergy/AdvReac Type Severity Reaction Status Date / Time No Known Drug Allergies Allergy Verified 11/25/20 10:04 Review of Systems - Constitutional Constitutional: reports: Fatigue, Weight stable. denies: Fever, Chills - Eyes Eyes: reports: Vision loss, Corrective lenses - Ears, Nose & Throat Ears, Nose & Throat: reports: Hearing loss - Cardiovascular Cardiovascular: reports: Edema (worsening in left foot). denies: Chest pain - Respiratory Respiratory: denies: SOB at rest - Gastrointestinal Gastrointestinal: reports: Constipation (noted after tx; uses miralax with good results), Good appetite. denies: Nausea - Genitourinary Genitourinary: reports: Other (hx of bladder cancer; follow up with urology yearly) - Musculoskeletal Musculoskeletal: reports: Back pain (improved with current regimen), Stiffness, Limited range of motion. denies: Muscle pain (no reccurence of muscle cramping off baclofen) - Integumentary Integumentary: reports: Dryness - Neurological Neurological: reports: Numbness (hands and feet from previous tx), Other (balance problems improved with PT) - Psychiatric Psychiatric: reports: Anxiety. denies: Depression - Hematologic/Lymphatic Hematologic/Lymph: reports: Anemia - All Other Systems All Other Systems: reports: Reviewed and negative Physical Exam - Vital Signs Temperature: 36.4 C Pulse Rate: 76 Respiratory Rate: 16 O2 Saturation: 100 Blood Pressure: 125/72 - Physical Exam General Appearance: positive: No acute distress, Alert Eyes Bilateral: positive: Normal inspection ENT: positive: Other (masked) Neck: positive: Trachea midline Cardiovascular: positive: Regular rate & rhythm Respiratory: positive: No respiratory distress, Breath sounds nml Abdomen: positive: Non-tender, Soft Skin: positive: Pallor Extremities: positive: Pedal edema (left greater than right; increase swelling in ankle) Neurologic/Psychiatric: positive: Oriented x3, Mood/affect nml Palliative Care - POLST Patient has POLST: No Pain: Pain worsening (left foot), Pain improved (back/muscle pain), Severity (2/10) Tiredness/Fatigue: Mild (1-3) Drowsiness/Sedation: Mild (1-3) Nausea: None Anorexia: None Dyspnea: None Depression: None Anxiety: Mild (1-3) Feelings of wellbeing/Perceived Quality of Life: Fair, Acceptable, No change Sleep: Sleeps well Constipation: Yes, Managed Performance Status: Patient limited at this time related to increased pain in his left foot, had been walking 20 minutes 3 times a week, only able to tolerate about 5-10 on the treadmill. He is independent in ADLs, and is participating and doing his physical exercises daily. - Palliative Care Discussion: Patient doing quite well, is hoping for some return to normalcy with ability to have Covid shot and things lightening up. He does have a tentative rally planned in February, he likes motorcycles and woodworking. Patient denies any distress or concerns regarding his current situation, agreed to reach out if any concerns or exacerbations of symptoms. Results - Lab Results Lab results reviewed: Yes Lab and Imaging Results: Is with mild pancytopenia WBC 3.3, hemoglobin 13.7, hematocrit 40.6, platelets 68,000; chemistries normal Impression and Recommendations - Palliative Care Impression: This is a 70-year-old gentleman with multiply Bowlegs, status post autologous stem transplant 05/2016 currently on maintenance daratumumab every 4 weeks and 02/2020, palliative care is seeing him for his residual chronic back pain, as result of that L5 myeloma bone lesion status post laminectomy. His pain is currently well controlled on regimen, able to titrate off meloxicam and baclofen. He has done well with physical therapy and adherent to his exercises. Palliative care continue provide support for pain and symptom management and anticipatory guidance. Recommendations/Counseling Done: 1. And is currently on pregabalin 100 mg 3 times daily, was able to stop meloxicam of baclofen without any worsening of pain or return of muscle cramps. Patient has benefited from physical therapy as well. Agreed current regimen is working, no further changes needed at this time. 2. Left foot pain. This is more acute in nature, suspect swelling and wor sening related to his DVT. Patient reports it is improving in both pain and swelling, instructed to follow-up with PCP or notify myself if needs further work-up. Counseling provided regarding progressive ambulation versus resume normal activities. Allow pain to be guide. 3. Anxiety. Patient expressing appropriate anxiety in the context of the pandemic and living with serious disease and cancer. Patient denies any acute symptoms or need for intervention. Patient feels currently coping without any need for further support or intervention. Counseled to reach out if needed further support between now and next scheduled visit. 4. Advanced care planning. Patient does have DPOA and health directives in place. At this point in time no further need to expand on these. Palliative care continue provide support and intermittent visits for management of pain. Agreed on 3-month interval for next clinic visit. 45 minutes. Provided counseling for pain and symptom management, review of current coping, review of chart and labs.
== END 2020-11-25 10:07 | disposition home or self-care (01) ==
LOC: PC 10:06
PROVIDERS: ATTEND Nurse Practitioner Adult Health
DX: Z51.5 Encounter for palliative care (principal); M54.9 Dorsalgia, unspecified; G89.29 Other chronic pain; M79.672 Pain in left foot; F41.9 Anxiety disorder, unspecified; C90.00 Multiple myeloma not having achieved remission; Z87.891 Personal history of nicotine dependence
CPT/HCPCS: 99215

== ENCOUNTER 2021-01-20 11:06 | Outpatient (CLI) | payer MEDICARE, OTHER ==
--- NOTE | 2021-01-20 16:01 | CONSULTATION NOTE ---
Palliative Care Follow Up - Referral Referring Provider: Dr. Neeta Garrett Time of Visit: 1115 45 minutes Referral setting: [facility] [place] Reason: Pain of neoplastic origin/MM - Information Sources Records reviewed: Previous records reviewed History/Review of Systems obtained from: Patient Exam limitations: No limitations - History of Present Illness Update Brief HPI Update: This is a dejuan 70-year-old gentleman with nonsecretory multiple myeloma with history of elevation of kappa light chain. He has had an autologous stem cell transplant and is currently on maintenance daratumumab every 4 weeks since 02/2020. He has a known L5 myeloma bone lesion status post laminectomy with residual chronic back pain. Palliative care has been following him for his back pain, is currently on pregabalin 100 mg 3 times daily, he has done well on this, he did complete his physical therapy and continues to do his exercises regularly. He is currently biking, with 40 minutes 3 times a week, his pain is exacerbated with walking and weightbearing, can only tolerate about 20 to 30 minutes of walking. Patient has no significant concerns or questions, he is aware he may need to change treatment in the future, he is sleeping with his combination of melatonin/CBC, and has started riding his motorcycle again. Past Medical History: Autologous stem cell transplant 05/2016, DVT left leg, multiple myeloma, hypertension, colon polyps, BPH, chronic vision loss, history of bladder cancer, fatigue, chronic back pain, psoriasis, history of smoking but quit 8 years ago. Social History - Living Situation Living arrangement: At home Living Situation: With spouse/s.o. 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 Is been to his for 25 years, has 2 stepchildren and 2 grandkids with good relationships. He loves woodworking and motorcycles. He is planning to attend his first [employer] set in February, he has completed his Holaira shots. Medications/Allergies - Medications Home Medications: Ambulatory Orders Medication Instructions Recorded Confirmed Lisinopril 20 mg PO DAILY 06/10/15 01/20/21 Multivitamin [Multivitamins] 1 each PO DAILY 11/25/15 01/20/21 Betamethasone Dipropionate 15 gm TP PRN PRN 07/05/17 01/20/21 Calcium Carbonate [Calcium] 1 tab PO BID 10/04/17 01/20/21 Turmeric Root Extract [Turmeric] 1 cap PO DAILY 01/03/18 01/20/21 Tamsulosin HCl [Flomax] 0.4 mg PO DAILY 11/13/19 01/20/21 Acyclovir 400 mg PO BID 12/10/19 01/20/21 Rivaroxaban [Xarelto] 20 mg PO DAILY 04/24/20 01/20/21 Pregabalin [Lyrica] 100 mg PO TID 09/02/20 01/20/21 Sildenafil Citrate [Sildenafil] 100 mg PO PRN PRN 09/20/20 01/20/21 - Allergies Allergies/Adverse Reactions: Allergies Allergy/AdvReac Type Severity Reaction Status Date / Time No Known Drug Allergies Allergy Verified 01/20/21 10:17 Review of Systems - Constitutional Constitutional: reports: Fatigue (improved), Weight stable. denies: Fever, Chills - Eyes Eyes: reports: Vision loss, Corrective lenses - Ears, Nose & Throat Ears, Nose & Throat: reports: Hearing loss - Cardiovascular Cardiovascular: denies: Chest pain - Gastrointestinal Gastrointestinal: reports: Constipation (noted after tx; uses miralax with good results), Good appetite. denies: Nausea - Genitourinary Genitourinary: reports: Other (hx of bladder cancer; follow up with urology yearly) - Musculoskeletal Musculoskeletal: reports: Back pain (improved with current regimen), Stiffness, Limited range of motion. denies: Muscle pain (no reccurence of muscle cramping off baclofen) - Integumentary Integumentary: reports: Dryness - Neurological Neurological: reports: Numbness (hands and feet from previous tx), Other (balance problems improved with PT) - Psychiatric Psychiatric: reports: Anxiety (mild). denies: Depression - Hematologic/Lymphatic Hematologic/Lymph: reports: Anemia - All Other Systems All Other Systems: reports: Reviewed and negative Physical Exam - Vital Signs Temperature: 36.6 C Pulse Rate: 70 Respiratory Rate: 18 O2 Saturation: 97 Blood Pressure: 128/63 - Physical Exam General Appearance: positive: No acute distress, Alert Eyes Bilateral: positive: Normal inspection ENT: positive: Other (masked) Neck: positive: Trachea midline Cardiovascular: positive: Regular rate & rhythm Respiratory: positive: No respiratory distress, Breath sounds nml Abdomen: positive: Non-tender, Soft Skin: positive: Pallor Extremities: positive: Pedal edema (left greater than right; improved) Neurologic/Psychiatric: positive: Oriented x3, Mood/affect nml Palliative Care - POLST Patient has POLST: No Pain: Location (lower back), Severity (2/10) Tiredness/Fatigue: Mild (1-3) Drowsiness/Sedation: None Nausea: None Anorexia: None Dyspnea: None Depression: None Anxiety: Mild (1-3) Feelings of wellbeing/Perceived Quality of Life: Good, Acceptable, Improved Sleep: Sleeps well Constipation: No Performance Status: Patient's functional status continues to improve, he is consistent with his exercise program. Activities only limited by his back pain with persistent standing or walking. - Palliative Care Discussion: Patient is very grateful he is doing well and holding his own, he does understand his disease is currently stable but may in the near future require a change in his treatment regimen. I did address his questions regarding around end-of-life planning, his father had had a very difficult with CHF, he is very interested in and having a little bit more control or having some things in place for end-of-life. Patient is doing quite well currently, but information was shared regarding planning. Impression and Recommendations - Palliative Care Impression: This is a dejuan 70-year-old gentleman with multiple myeloma, status post autologous stem cell transplant 05/2016, currently on maintenance daratumumab since 02/2020. Palliative care following patient for residual back pain secondary to L5 myeloma bone lesion status post laminectomy. Patient's pain is currently well controlled on his current regimen. Palliative care continue to provide support for pain and symptom management anticipatory guidance. Recommendations/Counseling Done: 1. Pain of neoplastic origin. Patient is currently on pregabalin 100 mg 3 times daily, is able to continue off meloxicam and baclofen. Patient has completed physical therapy and continues on his maintenance program. In agreement regimen is working, no further changes needed at this time. 2. Advanced care planning. Patient does have DPOA and health directives in place. Patient with questions regarding around end-of-life planning, options, a nd continuum of care. Counseling provided and questions addressed with anticipatory guidance 45 minutes with review of chart, examination, counseling and anticipatory guidance. Plan to see in 3 months.
== END 2021-01-20 11:07 | disposition home or self-care (01) ==
LOC: PC 11:06
PROVIDERS: ATTEND Nurse Practitioner Adult Health
DX: Z51.5 Encounter for palliative care (principal); G89.3 Neoplasm related pain (acute) (chronic); M54.5 Low back pain; C90.00 Multiple myeloma not having achieved remission; Z87.891 Personal history of nicotine dependence; Z79.899 Other long term (current) drug therapy
CPT/HCPCS: 99215

== ENCOUNTER 2021-03-24 08:50 | Outpatient (CLI) | payer MEDICARE, OTHER ==
--- NOTE | 2021-03-24 12:00 | CONSULTATION NOTE ---
Palliative Care Follow Up - Referral Referring Provider: Dr. Neeta Garrett Time of Visit: 11:15 45 Referral setting: [facility] [place] Referral Reason: Pain of neoplastic origin/MM/Fatigue - Information Sources Records reviewed: Previous records reviewed History/Review of Systems obtained from: Patient Exam limitations: No limitations - History of Present Illness Update Brief HPI Update: This is a dejuan 70-year-old gentleman with nonsecretory multiple myeloma with history of elevation of kappa light chain. He originally had an [employer] stem cell transplant 05/2016, and is currently on maintenance daratumumab every 4 weeks since 02/2020. He does have a known L5 myeloma bone lesion s/p laminectomy with residual chronic back pain. Patient has developed over the last 3 weeks, persistent and somewhat debilitating fatigue. He reports shortness of breath, intermittent dizziness, was quite surprised to find his hematocrit was within normal range. He denies any increasing cough, chills or night sweats, no dysuria, or other signs or symptoms of infection. Patient does have a WBC of 1.9, and neutrophils of 0.7. He also has developed originally left rib pain, reports is now has radiated around to the left upper thoracic, does have significant point tenderness on palpation and a small area of swelling of about the size of half a golf ball. Reports he has some tightness and discomfort with sleeping, denies muscle spasm, but does feel like it is in the musculature per his perception. He also on his right clavicular area feels like he pulled something, this is been improving, but is a new area of discomfort as well. He has only used some intermittent ibuprofen, had tried the meloxicam without any improvement. Has met with oncology, the plan is for a PET scan, he is continuing with his current treatment, though they have changed subcu. He was able to go on his [employer] motorcycle [email or web address], to [facility] and very much enjoyed this. Unfortunately this was in the middle of his fatigue, and did not improve when he returned over a week ago. Past Medical History: Autologous stem cell transplant 05/2016, DVT left leg, multiple myeloma, hypertension, colon polyps, BPH, chronic vision loss, history of bladder cancer, fatigue, chronic back pain, psoriasis, history of smoking but quit 9 years ago Social History - Living Situation Living arrangement: At home Living Situation: With spouse/s.o. 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 He is to his for 25 years, has 2 stepchildren and 2 grandkids with good relationships. He continues to love woodworking and motorcycles, unfortunately with his persistent fatigue, and increased discomfort he is only able to tolerate working on his woodworking for 2 hours versus 4 hours. Medications/Allergies - Medications Home Medications: Ambulatory Orders Medication Instructions Recorded Confirmed Lisinopril 20 mg PO DAILY 06/10/15 03/24/21 Multivitamin [Multivitamins] 1 each PO DAILY 11/25/15 03/24/21 Betamethasone Dipropionate 15 gm TP PRN PRN 07/05/17 03/24/21 Calcium Carbonate [Calcium] 1 tab PO BID 10/04/17 03/24/21 Turmeric Root Extract [Turmeric] 1 cap PO DAILY 01/03/18 03/24/21 Tamsulosin HCl [Flomax] 0.4 mg PO DAILY 11/13/19 03/24/21 Acyclovir 400 mg PO BID 12/10/19 03/24/21 Rivaroxaban [Xarelto] 20 mg PO DAILY 04/24/20 03/24/21 Pregabalin [Lyrica] 100 mg PO TID 09/02/20 03/24/21 Sildenafil Citrate [Sildenafil] 100 mg PO PRN PRN 09/20/20 03/24/21 Baclofen [Lioresal] 10 mg PO TID PRN 03/24/21 03/24/21 Fexofenadine HCl 180 mg PO DAILY 03/24/21 03/24/21 Ibuprofen [Motrin] 400 mg PO Q4HR PRN 03/24/21 03/24/21 - Allergies Allergies/Adverse Reactions: Allergies Allergy/AdvReac Type Severity Reaction Status Date / Time peanut Allergy Severe Unknown Verified 03/24/21 09:25 Review of Systems - Constitutional Constitutional: reports: Fatigue (more persistent last 3 weeks; limiting activity), Weight stable. denies: Fever, Chills - Eyes Eyes: reports: Vision loss, Corrective lenses - Ears, Nose & Throat Ears, Nose & Throat: reports: Hearing loss, Postnasal drainage (taking Adrianna for allergy symptoms) - Cardiovascular Cardiovascular: reports: Edema (no change in edema;), Lightheadedness, Exertional dyspnea. denies: Chest pain - Respiratory Respiratory: reports: SOB with exertion. denies: SOB at rest - Gastrointestinal Gastrointestinal: reports: Constipation (noted after tx; uses miralax with good results), Good appetite. denies: Nausea - Genitourinary Genitourinary: reports: Other (hx of bladder cancer; follow up with urology yearly) - Musculoskeletal Musculoskeletal: reports: Back pain (improved with current regimen), Stiffness, Limited range of motion. denies: Muscle pain (no reccurence of muscle cramping off baclofen) - Integumentary Integumentary: reports: Dryness, Other (hx of psorasis not flare) - Neurological Neurological: reports: Numbness (hands and feet from previous tx), Other (balance problems) - Psychiatric Psychiatric: reports: Anxiety (mild will be having PET scan;). denies: Depression - Hematologic/Lymphatic Hematologic/Lymph: reports: Anemia - All Other Systems All Other Systems: reports: Reviewed and negative Physical Exam - Vital Signs Temperature: 35.9 C Pulse Rate: 69 Respiratory Rate: 18 O2 Saturation: 98 (ra @ rest) Blood Pressure: 119/65 - Physical Exam General Appearance: positive: No acute distress, Alert Eyes Bilateral: positive: Normal inspection ENT: positive: Other (masked) Neck: positive: Trachea midline Cardiovascular: positive: Regular rate & rhythm Respiratory: positive: No respiratory distress, Breath sounds nml Abdomen: positive: Non-tender, Soft Skin: positive: Pallor Extremities: positive: Pedal edema (left greater than right; improved), Joint swelling (mild tenderness Left knee "bursitis" recurrent) Neurologic/Psychiatric: positive: Oriented x3, Mood/affect nml Palliative Care - POLST Patient has POLST: No POLST Status: Full Code Pain: Pain worsening, Comment (Patient's pain that is persistent with a 3-4 over 10, with use of the ibuprofen, it goes down to 1-2.) Tiredness/Fatigue: Moderate (4-6) Drowsiness/Sedation: Mild (1-3) Nausea: None Anorexia: None Dyspnea: Mild (1-3) Depression: None Anxiety: Mild (1-3) Feelings of wellbeing/Perceived Quality of Life: Fair, Acceptable, Worsening (related to fatigue/activity intolerance) Sleep: Sleeps poorly (difficulty getting comfortable position;) Constipation: Yes, Managed Performance Status: Notes decrease in functional status in the context was able to work 45 hours on his woodworking, now down to 2 hours, this is related persistent discomfort and worsening fatigue. He has also been biking, he is doing his home physical therapy program to help manage his pain. Results - Lab Results Lab results reviewed: Yes Impression and Recommendations - Palliative Care Impression: This is a dejuan 70-year-old gentleman with multiple myeloma, s/p autologous stem cell transplant 05/2016, currently on maintenance daratumumab since 02/2020. Patient presents today with worsening of her left back pain, persistent and worsening fatigue for 2 to 3 weeks, pending PET scan, and more difficulty with sleeping. Palliative care continue provide support for pain and symptom management, anticipatory guidance, and psychosocial support Recommendations/Counseling Done: 1. Pain of neoplastic origin. Patient is currently on pregabalin 100 mg 3 times daily, unfortunately has had an exacerbation with a new area of pain of left mid thoracic area, tenderness with palpation, having more "tightness" in back. He reports intermittent ibuprofen 400 mg, does respond, was not responsive to the meloxicam. We discussed at least at bedtime reinitiating baclofen 10 mg at at bedtime, Rx sent. Patient scheduled to have a PET scan, patient has never had radiation for bone lesions, we did discuss at some level this is an option in patients with multiple myeloma if indicated. He is hopeful that there will be yet another treatment plan, as he does understand his numbers are increasing. 2. Fatigue. Patient reports this is worsened over the last 2 to 3 weeks, was surprised he was not anemic, denies any signs or symptoms of infection, decreased activity tolerance. Patient is pacing himself, reviewed other risk factors i.e. heat exhaustion and dehydration, patient feels like he has been monitoring this. We will continue to evaluate trends. 3. Advanced care planning. Patient's goals are continue to treat, is hopeful to have more information, and continue treatment. Patient has been exploring options, does understand there are new combinations, even since he was last diagnosed 5 years ago, continues to hope for the best, but would like to continue to focus on quality of life as well as quantity of life. Review of labs, review of oncology notes, [id number] with patient, evaluation of symptom management, psychosocial support, will await outcome of PET scan to see if further intervention or support needed from palliative care, otherwise we will continue meeting every 2 months.
== END 2021-03-24 08:51 | disposition home or self-care (01) ==
LOC: PC 08:50
PROVIDERS: ATTEND Nurse Practitioner Adult Health
DX: Z51.5 Encounter for palliative care (principal); G89.3 Neoplasm related pain (acute) (chronic); M54.6 Pain in thoracic spine; C90.00 Multiple myeloma not having achieved remission; R53.83 Other fatigue; Z87.891 Personal history of nicotine dependence
CPT/HCPCS: 99215

== ENCOUNTER 2021-05-22 15:30 | Outpatient (CLI) | payer MEDICARE, OTHER ==
--- NOTE | 2021-05-22 17:22 | CONSULTATION NOTE ---
Palliative Care Follow Up - Referral Referring Provider: Dr. Neeta Garrett Time of Visit: [id number] Referral setting: Home Referral Reason: Pain of neoplastic origin/Multiple myeloma/Left jaw tumor - Information Sources Records reviewed: Previous records reviewed History/Review of Systems obtained from: Patient Exam limitations: No limitations - History of Present Illness Update Brief HPI Update: This is a dejuan 70-year-old gentleman with nonsecretory multiple myeloma, with history of kappa light chain elevation. He originally had a stem cell transplant 05/2016, and has been on maintenance daratumumab Since 02/2020. He does have an known L5 myeloma bone lesion s/p laminectomy with residual chronic back pain. Patient in March was starting to have more aches and pains, persistent fatigue, and has slowly had escalating pain in his left jaw over the last 2 months, originally it was just tender, then over the last couple weeks developed some swelling, and now is having severe pain over the last several days. He did receive a PET scan on 03/30/2021 that did show several bone lesions, and at that point in time he did have a left posterior mandible tumor measuring about 2 x 3 cm, currently on palpation it is about the size of a walnut very tender to touch. Increased pain with eating and talking. Patient reports he does have a high pain tolerance, but it has been worsening. Pain is such that it is causing "brain fog", difficulty concentrating as well as communicating. Patient has trialed acetaminophen and without any results, trialed ibuprofen with no improvement, patient has in the past had Significant distress with dexamethasone, so unfortunately this comes off the table currently for pain man agement. Patient has used opioids in the past, we had been Avoiding him with his chronic back pain, and have been able to manage his pain with pregabalin 100 mg 3 times daily unfortunately this is not helping his jaw pain. Patient is concerned about sedation and feeling "out of it". But he also is severely compromised with the pain currently. He has had constipation before when he has had pain pills for surgery. Patient also on his PET scan shows proximal left humerus, midshaft left clavicle, mid sternum, and right lateral fifth rib with an associated pathologic fracture, he does remember about 2 months ago having severe discomfort in that area, and took about 6 weeks to heal. Due to insert fortunate series of events, he had gotten referral to [facility] to see Dr. Nando Leal, unfortunately he was retiring. He does not now have an appointment until 05/[address] Cuellar, he has an appointment regarding stem cell transplant on 06/11, and follow-up with Dr. Gerry Swift. Patient is fearful with the escalation of his pain and increased swelling with his tumor the timeline is going to be difficult. Past Medical History: Tolerated stem cell transplant 05/2016, DVT left leg, multiple myeloma, hypertension, colon polyps, BPH, chronic vision loss, history of bladder cancer, fatigue, chronic back pain, psoriasis, history of smoking but quit 9 years ago. Social History - Living Situation Living arrangement: At home Living Situation: With spouse/s.o. Support System: Patient is seen in his home secondary to urgency of visit. 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 He is to his for 25 years, has 2 stepchildren and 2 grandchildren's with good relationships. He is continuing his woodworking, working on his property, and riding motorcycles. Medications/Allergies - Medications Home Medications: Ambulatory Orders Medication Instructions Recorded Confirmed Lisinopril 20 mg PO DAILY 06/10/15 05/22/21 Multivitamin [Multivitamins] 1 each PO DAILY 11/25/15 05/22/21 Betamethasone Dipropionate 15 gm TP PRN PRN 07/05/17 05/22/21 Calcium Carbonate [Calcium] 1 tab PO BID 10/04/17 05/22/21 Turmeric Root Extract [Turmeric] 1 cap PO DAILY 01/03/18 05/22/21 Tamsulosin HCl [Flomax] 0.4 mg PO DAILY 11/13/19 05/22/21 Acyclovir 400 mg PO BID 12/10/19 05/22/21 Rivaroxaban [Xarelto] 20 mg PO DAILY 04/24/20 05/22/21 Pregabalin [Lyrica] 100 mg PO TID 09/02/20 05/22/21 Sildenafil Citrate [Sildenafil] 100 mg PO PRN PRN 09/20/20 05/22/21 Fexofenadine HCl 180 mg PO DAILY 03/24/21 05/22/21 Ibuprofen [Motrin] 400 mg PO Q4HR PRN 03/24/21 05/22/21 Melatonin/Pyridoxine [Melatonin 5 1 tab PO QPM 05/22/21 05/22/21 mg Tablet] Naloxone HCl [Narcan] 1 spray AYLIN ONCE PRN 05/22/21 05/22/21 Senna [Senokot] 2 tab PO BID PRN MDD 8 tabs 05/22/21 05/22/21 oxyCODONE [Roxicodone] 5 - 10 mg PO Q4HR PRN MDD 8 tabs 05/22/21 05/22/21 polyethylene glycoL 3350 [Miralax] 17 gm PO DAILY MDD bid 05/22/21 05/22/21 - Allergies Allergies/Adverse Reactions: Allergies Allergy/AdvReac Type Severity Reaction Status Date / Time peanut Allergy Severe Unknown Verified 03/24/21 09:25 Review of Systems - Constitutional Constitutional: reports: Fatigue (worsening), Weight stable. denies: Fever, Chills - Eyes Eyes: reports: Vision loss, Corrective lenses - Ears, Nose & Throat Ears, Nose & Throat: reports: Hearing loss, Other (pain in left jaw; swelling worsening) - Cardiovascular Cardiovascular: reports: Edema (no change in edema chronic Left ankle), Lightheadedness, Exertional dyspnea. denies: Chest pain - Respiratory Respiratory: denies: SOB at rest - Gastrointestinal Gastrointestinal: reports: Constipation (noted after tx; uses miralax with good results), Good appetite. denies: Nausea - Genitourinary Genitourinary: reports: Other (hx of bladder cancer; follow up with urology yearly) - Musculoskeletal Musculoskeletal: reports: Back pain (improved with current regimen), Stiffness, Limited range of motion. denies: Muscle pain (no reccurence of muscle cramping off baclofen) - Integumentary Integumentary: reports: Dryness - Neurological Neurological: reports: Numbness (hands and feet from previous tx), Memory problems (with pain feels like he is in a brain fog), Other (balance problems) - Psychiatric Psychiatric: reports: Anxiety (mild will be having PET scan;). denies: Depression - Hematologic/Lymphatic Hematologic/Lymph: reports: Anemia (12.7) - All Other Systems All Other Systems: reports: Reviewed and negative Physical Exam - Vital Signs Temperature: 97.0 C Pulse Rate: 92 Respiratory Rate: 16 O2 Saturation: 97 (ra @ rest) Blood Pressure: 114/72 - Physical Exam General Appearance: positive: Alert, Moderate distress, Other (appears uncomfortable; eyes squinting) Eyes Bilateral: positive: Other (perioribital edema) ENT: positive: No signs of dehydration, Other (left posterior jaw with walnut size tumor; tender) Neck: positive: Trachea midline Cardiovascular: positive: Regular rate & rhythm Respiratory: positive: No respiratory distress, Breath sounds nml Abdomen: positive: Soft Skin: positive: Pallor (sallow), Dryness Neurologic/Psychiatric: positive: Oriented x3, Mood/affect nml, Flat affect Palliative Care - POLST Patient has POLST: No POLST Status: Full Code Pain: Pain worsening, Location (back pain controlled; left jaw pain worsening daily), Severity (severe), Pattern (worse with eating and talking; best when wakes up in am) Tiredness/Fatigue: Severe (7-10) Drowsiness/Sedation: Moderate (4-6) Nausea: None Anorexia: None Anxiety: Moderate (4-6) Feelings of wellbeing/Perceived Quality of Life: Fair, Acceptable, Worsening (with pain and unknown) Sleep: Sleeps well Performance Status: Patient feeling poorly, with decreased activity tolerance with persistent and worsening fatigue. Patient feeling very foggy with increased pain, difficulty concentrating, and spending time with woodworking. - Palliative Care Discussion: Patient is concerned regarding the rapid growth of his tumor and is jaw, and the timing of appointments. He very much wanted to avoid opioids, but after much discussion we do not have much choice with his escalating pain. He is in agreement of this. He is feeling somewhat overwhelmed, wondering if it is getting closer to his time, but is hopeful there will be a treatment yet for him that will work particularly in the context of shrinking his tumor. Results - Lab Results Lab results reviewed: Yes Impression and Recommendations - Palliative Care Impression: This is a dejuan 70-year-old gentleman with multiple myeloma, now presenting with worsening pain, increased bone lesions, and worsening fatigue. He is awaiting recommendations for treatment plan, in the meantime jaw tumor is increasing both in size and pain. Palliative care to provide support for pain and symptom management, anticipatory guidance and psychosocial support. Recommendations/Counseling Done: 1. Pain of neoplastic origin. Patient at baseline is on pregabalin 100 mg 3 times daily for lower back pain, has been effective up to this point in time. He has trialed acetaminophen, ibuprofen, without any results. Patient has tolerated dexamethasone poorly in the past. We will go ahead and initiate opioids. Counseling provided regarding opioid use, safety, dosing. We will start with oxycodone 5 mg may take 1-2 every 4 hours as needed not to exceed 8 tabs in 24 hours. Principles of pain management were reviewed, will transition him to long-acting when we have a baseline. Instructed to track and log medications as well as take with food. Discussed side effects of sedation, nausea does have antiemetic available if needed, as well as constipation. Patient verbalized understanding, unfortunately we are coming into the holiday weekend. Patient was given parameters how to work with this, and pharmacy permission to release partial fill if needed. Narcan ordered for safety, this was reviewed with patient as a safety measure reviewed most often before 1 "overdoses" patient has sedation or increased confusion, but also important have been home in case someone diverts or uses inappropriately 2. Opioid-induced constipation. Patient has experienced this in the past, instructed to start MiraLAX 17 g 1 cap daily, and add senna 1-2 tabs twice a day. If stool hard increase MiraLAX to twice daily, if no BM in 48 hours increase to the senna 2 tabs 2-3 times a day. 3. Anxiety. This is appropriate given his worsening symptoms. Is awaiting recommendations from [facility] and follow-up with Dr. Garrett. Addressed questions as able regarding pending treatment plans, normalized feeling of overwhelm and concern with progressive disease. 4. Fatigue. This continues to worsen for patient, labs have been within acceptable limits, patient is not anemic. Suspect attributed to worsening pain and underlying disease process. We will continue to monitor. 60 minutes with greater 50% of this done in counseling regarding pain and symptom management, psychosocial support, will follow up beginning of next week and titrate accordingly.
== END 2021-05-22 15:31 | disposition home or self-care (01) ==
LOC: PC 15:30
PROVIDERS: ATTEND Nurse Practitioner Adult Health
DX: Z51.5 Encounter for palliative care (principal); C90.00 Multiple myeloma not having achieved remission; G89.3 Neoplasm related pain (acute) (chronic); M54.5 Low back pain; R53.83 Other fatigue; F41.9 Anxiety disorder, unspecified; I10 Essential (primary) hypertension; N40.0 Benign prostatic hyperplasia without lower urinary tract symptoms; H54.7 Unspecified visual loss; L40.9 Psoriasis, unspecified; K59.03 Drug induced constipation; T40.2X5A Adverse effect of other opioids, initial encounter; Z87.891 Personal history of nicotine dependence; Z85.51 Personal history of malignant neoplasm of bladder; Z94.84 Stem cells transplant status; Z79.01 Long term (current) use of anticoagulants; Z79.899 Other long term (current) drug therapy
CPT/HCPCS: 99350

== ENCOUNTER 2021-06-22 14:39 | Outpatient (CLI) | payer MEDICARE, OTHER | END 2021-06-22 14:40 | disposition home or self-care (01) | LOC: LAB.S 14:39 | PROVIDERS: ATTEND Urology | DX: R97.20 Elevated prostate specific antigen [PSA] (principal) | CPT/HCPCS: 36415; 84153 ==

== ENCOUNTER 2021-06-25 09:43 | Outpatient (CLI) | payer MEDICARE, OTHER ==
[2021-06-25] MEDS ORDERED: LACTATED RINGERS 1,000 ML IV ONE ×2 (10:03→11:40)
[2021-06-25 10:22] LABS: HCT - HEMATOCRIT 37.1 % (42.0-52.0); HGB - HEMOGLOBIN 12.2 g/dL (14.0-18.0); MEAN CORPUSCULAR HEMOGLOBIN 34.3 pg (27.0-31.0); MEAN CORPUSCULAR HGB CONC 32.9 g/dL (32.0-36.0); MEAN CORPUSCULAR VOLUME 104.2 fL (80.0-94.0); MEAN PLATELET VOLUME 12.4 fL (7.4-11.4); NEUTROPHILS % (AUTO) 70.5 %; RED BLOOD COUNT 3.56 10^6/uL (4.70-6.10); RED CELL DISTRIBUTION WIDTH 15.2 % (12.0-15.0); WHITE BLOOD COUNT 2.9 x10^3/uL (4.8-10.8)
[2021-06-25 10:32] LABS: ALBUMIN 3.8 g/dL (3.2-5.5); ALBUMIN/GLOBULIN RATIO 0.9 (1.0-2.2); BILIRUBIN,TOTAL 0.7 mg/dL (0.2-1.0); CALCIUM 9.4 mg/dL (8.5-10.3); CREATININE 0.9 mg/dL (0.6-1.2); POTASSIUM 3.9 mmol/L (3.5-5.0)
[2021-06-25 10:44] LABS: INR 1.2 (0.8-1.2); PT - PROTHROMBIN TIME 13.7 secs (9.9-12.6)
[2021-06-25] MEDS ORDERED: BUFFERED LIDOCAINE 10 ML SYRINGE ONE (10:48)
[2021-06-25] MEDS ORDERED: BUFFERED LIDOCAINE 10 ML SYRINGE IU ONE (12:11)
[2021-06-25 13:05] LABS: HCT - HEMATOCRIT 34.3 % (42.0-52.0); HGB - HEMOGLOBIN 11.7 g/dL (14.0-18.0)
[2021-06-25 13:46] VITALS: BP 117/60
--- NOTE | 2021-06-25 17:05 | CT Report ---
PROCEDURE: BONE MARROW BX W/ASPIRATION INDICATIONS: MULTIPLE MYELOMA TECHNIQUE: The indications, alternatives, benefits, risks, and possible complications of the procedure were comm unicated to the patient. Informed written consent from the patient was obtained and placed in the art. Continuous EKG and hemodynamic monitoring was started by trained personnel. For radiation dose reduction, the following was used: automated exposure control, adjustment of mA and/or kV according to patient size. The patient was brought to the CT suite and corporate representative spiral CT imaging was performed with localization g rid. The appropriate site for percutaneous access to the biopsy target was marked, was prepped and d raped sterilely, and was infused with local anaesthesia. Under CT guidance, a core biopsy trocar and needle set was advanced to the biopsy target, and specimen(s) were obtained. The trocar and needle were then removed, and the patient was sent for post-procedure monitoring. COMPARISON: None. FINDINGS: Biopsy site: Left iliac bone. Needle: 16-gauge gauge biopsy needle with introducer trocar. Number of passes: 1 cord biopsy with 20cc marrow aspirate. Medications: 1% lidocaine for local anaesthesia. Complications: None. IMPRESSION: Successful CT-guided biopsy of left iliac bone marrow. Reviewed by: Peggy Reyes MD, PhD on 06/25/2021 5:04 PM PDT Approved by: Peggy Reyes MD, PhD on 06/25/2021 5:04 PM PDT Station ID: [id number]
[2021-06-27 09:51] LABS: IMMUNOGLOBULIN A 2386 mg/dL (70-320); IMMUNOGLOBULIN G 191 mg/dL (600-1540); IMMUNOGLOBULIN M 40 mg/dL (50-300)
== END 2021-06-25 09:44 | disposition home or self-care (01) ==
LOC: DI 09:43
PROVIDERS: ATTEND Internal Medicine Hematology & Oncology
DX: C90.00 Multiple myeloma not having achieved remission (principal); D61.818 Other pancytopenia; Z86.718 Personal history of other venous thrombosis and embolism; Z79.01 Long term (current) use of anticoagulants
CPT/HCPCS: 36415; 38222; 77012; 80053; 81599; 82232; 82784; 83883; 85014; 85018; 85027; 85610; 85730; J7120; 85049

== ENCOUNTER 2021-07-08 10:00 | Outpatient (CLI) | payer MEDICARE, OTHER ==
--- NOTE | 2021-07-08 10:52 | CONSULTATION NOTE ---
Palliative Care Follow Up - Referral Referring Provider: Dr. Neeta Garrett Time of Visit: 10:00 45 minutes Referral setting: [facility] [place] Reason: Pain of neoplastic origin/MM with bone mets/MDS - Information Sources Records reviewed: RN notes reviewed, Previous records reviewed History/Review of Systems obtained from: Patient Exam limitations: No limitations - History of Present Illness Update Brief HPI Update: This is a 71-year-old gentleman who I have been seeing long-term for his chronic back pain as result of his L5 myeloma bone lesion s/p laminectomy. He has nonsecretory multiple myeloma with history of kappa light chain elevation, and originally had a stem cell transplant 05/2016 and has been on maintenance daratumumab until recently. He started developing more aches and pains, persistent fatigue, and escalating pain in his left jaw. It did develop into a tumor, which he did have radiation and completed on 06 19 with good pain control. His PET scan though did show progression in his bones. He has had a bone marrow, on 06/25, and has unfortunately now MDS as well. He has [facility], looking at a second auto stem cell check transplant. He has been started on treatment carfilzomib, and dexamethasone 20 mg weekly, currently holding Pomalyst due to neutropenia. Patient is somewhat discouraged, does perceive with progression of disease "he is closer to the end". Though he does still have treatment options, remains functional, pain is currently controlled. He has done fairly poorly on any kind of opioids, makes his constipation worse, as well as feeling more fuzzy. If patient were to have another specific identified area of pain, would recommend radiation as this was effective. Past Medical History: Autologous stem cell transplant 05/2016, DVT of left leg, multiple myeloma, hypertension, colon polyps, BPH, chronic vision loss, history of bladder cancer, fatigue, chronic back pain, psoriasis, history of smoking but quit 10 years ago Social History - Living Situation Living arrangement: At home Living Situation: With spouse/s.o. 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 He is to his of 25 years, has 2 stepchildren and 2 grandchildren with good relationships. He does feel this is been more difficult for his , with this worsening of his disease. He is continuing his woodworking, but has had decreased energy for his hobbies. Medications/Allergies - Medications Home Medications: Ambulatory Orders Medication Instructions Recorded Confirmed Lisinopril 20 mg PO DAILY 06/10/15 07/09/21 Multivitamin [Multivitamins] 1 each PO DAILY 11/25/15 07/09/21 Betamethasone Dipropionate 15 gm TP PRN PRN 07/05/17 07/09/21 Calcium Carbonate [Calcium] 1 tab PO BID 10/04/17 07/09/21 Turmeric Root Extract [Turmeric] 1 cap PO DAILY 01/03/18 07/09/21 Tamsulosin HCl [Flomax] 0.4 mg PO DAILY 11/13/19 07/09/21 Acyclovir 400 mg PO BID 12/10/19 07/09/21 Rivaroxaban [Xarelto] 20 mg PO DAILY 04/24/20 07/09/21 Pregabalin [Lyrica] 100 mg PO TID 09/02/20 07/09/21 Sildenafil Citrate [Sildenafil] 100 mg PO PRN PRN 09/20/20 07/09/21 Ibuprofen [Motrin] 400 mg PO Q4HR PRN 03/24/21 07/09/21 Melatonin/Pyridoxine [Melatonin 5 1 tab PO QPM 05/22/21 07/09/21 mg Tablet] Naloxone HCl [Narcan] 1 spray AYLIN ONCE PRN 05/22/21 07/09/21 Senna [Senokot] 2 tab PO BID PRN MDD 8 tabs 05/22/21 07/09/21 Ondansetron [Zuplenz] 8 mg PO DAILY 06/03/21 07/09/21 Pomalidomide [Pomalyst] 4 mg PO DAILY MDD Currently on HOLD 06/22/21 07/09/21 Zolpidem [Ambien] 5 - 10 mg PO QPM PRN 07/07/21 07/09/21 dexAMETHasone [Decadron] 20 mg PO .WEEKLY 07/09/21 07/09/21 polyethylene glycoL 3350 [Miralax] 17 gm PO DAILY PRN 07/09/21 07/09/21 - Allergies Allergies/Adverse Reactions: Allergies Allergy/AdvReac Type Severity Reaction Status Date / Time peanut Allergy Severe Unknown Verified 03/24/21 09:25 Review of Systems - Constitutional Constitutional: reports: Fatigue, Weight stable. denies: Fever, Chills - Eyes Eyes: reports: Vision loss, Corrective lenses - Ears, Nose & Throat Ears, Nose & Throat: reports: Hearing loss, Other (jaw pain almost resolved) - Cardiovascular Cardiovascular: reports: Edema (almost resolved several weeks in Left ankle/leg). denies: Chest pain - Respiratory Respiratory: denies: SOB at rest - Gastrointestinal Gastrointestinal: reports: Constipation (noted with new tx), Good appetite. denies: Nausea, Reflux/heartburn - Genitourinary Genitourinary: reports: Other (hx of bladder cancer; follow up with urology yearly) - Musculoskeletal Musculoskeletal: reports: Back pain (no change in chronic back pain; rib pain resolved with radiation), Stiffness. denies: Muscle pain (no reccurence of muscle cramping off baclofen) - Integumentary Integumentary: reports: Dryness, Hair changes (over saleh/jaw) - Neurological Neurological: reports: Numbness (hands and feet from previous tx), Memory problems (improved off opioids) - Psychiatric Psychiatric: reports: Anxiety (new treatment regimen; MDS dx; awaiting further information regarding stem cell transplant). denies: Depression - Hematologic/Lymphatic Hematologic/Lymph: reports: Anemia (12.7) - All Other Systems All Other Systems: reports: Reviewed and negative Physical Exam - Vital Signs Temperature: 36.9 C Pulse Rate: 67 Respiratory Rate: 18 Blood Pressure: 119/61 - Physical Exam General Appearance: positive: No acute distress, Alert Eyes Bilateral: positive: Other (mild periorbital edema) ENT: positive: No signs of dehydration Neck: positive: Trachea midline Cardiovascular: positive: Regular rate & rhythm Respiratory: positive: No respiratory distress, Breath sounds nml Abdomen: positive: Soft, Other (rounded) Skin: positive: Pallor (face flushed; attributes to dex), Dryness Extremities: negative: Pedal edema Neurologic/Psychiatric: positive: Oriented x3, Mood/affect nml, Flat affect Palliative Care - POLST Patient has POLST: No POLST Status: Full Code Pain: Pain unchanged (lower back managed on pregablin), Pain improved (left jaw/rib) Feelings of wellbeing/Perceived Quality of Life: Fair, Worsening, Comment (hoping for improvement with treatment) Sleep: Variable sleep pattern (restarting dex; did get some last night with ambien) Constipation: Yes, Managed (uses Miralax as needed; senna as needed), Intermittent constipation Performance Status: Patient more sedentary, has been very busy with multiple medical appointments and radiation. Is managing his ADLs and is able to drive. - Palliative Care Discussion: Discussion centered on just concerns regarding progressive disease, now new diagnosis of MDS, uncertainty of whether will be a stem cell transplant candidate and implications regarding this. He does worry some about being "closer to the" though we did discuss with multiple myeloma and MDS there are still multiple treatments. Patient's quality of life at this point is improved in the context no longer needing pain medications. Is concerned about this if it does recur, though radiation was quite effective hopefully would be a candidate for this again. Discussed emotional implications and impact on relationship as well as concerns for the future. Results - Lab Results Lab results reviewed: Yes Impression and Recommendations - Palliative Care Impression: This is a 71-year-old gentleman with known multiple myeloma, now with progression of disease particularly noted in his bones. Bone marrow pathology unfortunately showed progressive disease with MDS as well. Patient is awaiting information regarding possibility of second auto stem cell transplant. Patient is currently receiving treatment, though does present with some pancytopenia. Palliative care meeting with patient for ongoing support for symptom management. Recommendations/Counseling Done: 1. Pain of neoplastic origin. Patient at baseline is on pregabalin 100 mg 3 ti mes daily for lower back pain, has continue to be effective up to this point in time. At this point in time he is off the dexamethasone for pain, has not needed any further opioids. Did receive radiation for his left jaw and ribs with resolution of pain. Reports pain just an ache in his left jaw and tolerable. Patient does have some mild discomfort in his left humerus, noted lesion there as well we will continue to monitor may need further follow-up with radiation. Patient tolerates opioids poorly, and would like to avoid. 2. Constipation. Patient has had increased constipation and attributes it to side effects of treatment, has started his MiraLAX daily, encouraged to take senna 2 tabs every 4 hours until bowels have moved. Verbalizes understanding. 3. Anxiety. This is appropriate in the context of his progression of disease, does have a treatment plan, but still some unknowns particular around transplant. Counseling provided to normalize current processes and provide psy chosocial support. 45 minutes with review of labs, records, oncology notes, [id number] for evaluation of symptom management and anticipatory guidance. Palliative care continue to follow patient every 4 to 6 weeks for ongoing support, patient will call if needs appointment sooner.
== END 2021-07-08 10:01 | disposition home or self-care (01) ==
LOC: PC 10:00
PROVIDERS: ATTEND Nurse Practitioner Adult Health
DX: Z51.5 Encounter for palliative care (principal); C90.02 Multiple myeloma in relapse; G89.3 Neoplasm related pain (acute) (chronic); M89.8X8 Other specified disorders of bone, other site; D64.9 Anemia, unspecified; F41.9 Anxiety disorder, unspecified; K59.03 Drug induced constipation; R53.83 Other fatigue; H54.7 Unspecified visual loss; H91.90 Unspecified hearing loss, unspecified ear; Z94.84 Stem cells transplant status; Z79.899 Other long term (current) drug therapy; Z79.52 Long term (current) use of systemic steroids; Z86.718 Personal history of other venous thrombosis and embolism; Z87.891 Personal history of nicotine dependence; Z85.51 Personal history of malignant neoplasm of bladder
CPT/HCPCS: 99215

== ENCOUNTER 2021-07-17 09:00 | Outpatient (CLI) | payer MEDICARE, OTHER | END 2021-07-17 09:01 | disposition home or self-care (01) | LOC: DI 09:00 | PROVIDERS: ATTEND Internal Medicine Hematology & Oncology | DX: C90.00 Multiple myeloma not having achieved remission (principal); I34.0 Nonrheumatic mitral (valve) insufficiency | CPT/HCPCS: 93306 ==

== ENCOUNTER 2021-08-04 09:30 | Outpatient (CLI) | payer MEDICARE, OTHER ==
--- NOTE | 2021-08-04 19:17 | CONSULTATION NOTE ---
Palliative Care Follow Up - Referral Referring Provider: Dr. 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 He was recently started on carfilzomib secondary to progression of disease, that included a bone lesion in his left jaw which responded well to radiation. He did experience side effects to the carfilzomib, with mental status changes, disorientation and chills and confusion. This resulted in holding a treatment with decreasing dose. He is also on weekly dexamethasone 20 mg, unfortunately last week he had vomiting with this that did not respond to ondansetron. He has developed increased pain in his left upper arm, with limited mobility, patient is very opioid adverse secondary to constipation and altered feelings of sedation. Would prefer no opioids versus pain. He previously did respond well to radiation, though this is weighted in conjunction with being able to tolerate further treatment because of his pancytopenia. He has just restarted the pomalidomide, which was on hold due to neutropenia, unfortunately has developed a diffuse rash, this is continued to increase, no blistering distal now covering his upper and lower extremities, some across his thigh. He reports this is progressed despite Benadryl 25 mg twice daily. Most disturbing is the pruritus in his scalp. Patient has underlying peripheral neuropathy from previous treatment, chronic back pain from history of plasmacytoma involving L5, and has been on pregabalin 100 mg 3 times daily without significant side effects. His most significant quality of life issue today is his pain in his left arm and rash. New complaint of right ankle pain, denies trauma or swelling. 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 Social History - Living Situation Living arrangement: At home Living Situation: With spouse/s.o. 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 He is to his for 25 years, has 2 stepchildren and 2 grandchildren with good relationships. He does feel this is continue to be more difficult on his , with his worsening of disease and unknown prognosis. He is unable currently with his pain to participate in his hobby of woodworking, and is finding himself quite sedentary with increased depression. Medications/Allergies - Medications Home Medications: Ambulatory Orders Medication Instructions Recorded Confirmed Lisinopril 20 mg PO DAILY 06/10/15 08/05/21 Multivitamin [Multivitamins] 1 each PO DAILY 11/25/15 08/05/21 Calcium Carbonate [Calcium] 1 tab PO BID 10/04/17 08/05/21 Turmeric Root Extract [Turmeric] 1 cap PO DAILY 01/03/18 08/05/21 Tamsulosin HCl [Flomax] 0.4 mg PO DAILY 11/13/19 08/05/21 Acyclovir 400 mg PO BID 12/10/19 08/05/21 Rivaroxaban [Xarelto] 20 mg PO DAILY 04/24/20 08/05/21 Pregabalin [Lyrica] 150 mg PO TID MDD titrating up 09/02/20 08/05/21 Sildenafil Citrate [Sildenafil] 100 mg PO PRN PRN 09/20/20 08/05/21 Ibuprofen [Motrin] 400 mg PO Q4HR PRN 03/24/21 08/05/21 Melatonin/Pyridoxine [Melatonin 5 1 tab PO QPM 05/22/21 08/05/21 mg Tablet] Naloxone HCl [Narcan] 1 spray AYLIN ONCE PRN 05/22/21 08/05/21 Senna [Senokot] 2 tab PO BID PRN MDD 8 tabs 05/22/21 08/05/21 Ondansetron [Zuplenz] 8 mg PO DAILY 06/03/21 08/05/21 dexAMETHasone [Decadron] 20 mg PO .WEEKLY MDD Fridays07/09/21 08/05/21 polyethylene glycoL 3350 [Miralax] 17 gm PO DAILY PRN 07/09/21 08/05/21 Pomalidomide [Pomalyst] 4 mg PO .1 TAB 21 DAYS 08/05/21 08/05/21 Triamcinolone 0.1% Oint [Kenalog 1 applic TOP BID PRN 08/05/21 08/05/21 0.1% Oint] diphenhydrAMINE [Benadryl] 25 mg PO BID 08/05/21 08/05/21 - Allergies Allergies/Adverse Reactions: Allergies Allergy/AdvReac Type Severity Reaction Status Date / Time peanut Allergy Severe Unknown Verified 03/24/21 09:25 Review of Systems - Constitutional Constitutional: reports: Fatigue, Weight stable. denies: Fever, Chills - Eyes Eyes: reports: Vision loss, Corrective lenses - Ears, Nose & Throat Ears, Nose & Throat: reports: Hearing loss, Other (jaw pain almost resolved) - Cardiovascular Cardiovascular: reports: Edema (almost resolved several weeks in Left ankle/leg). denies: Chest pain - Gastrointestinal Gastrointestinal: reports: Constipation (noted with new tx), Good appetite. denies: Nausea, Reflux/heartburn - Genitourinary Genitourinary: reports: Other (hx of bladder cancer; follow up with urology yearly) - Musculoskeletal Musculoskeletal: reports: Back pain (no change in chronic back pain; rib pain resolved with radiation), Stiffness, Joint pain (left ankle). denies: Muscle pain (no reccurence of muscle cramping off baclofen) - Integumentary Integumentary: reports: Dryness, Hair changes (over saleh/jaw) - Neurological Neurological: reports: Numbness (hands and feet from previous tx), Memory problems (improved off opioids) - Psychiatric Psychiatric: reports: Anxiety (new treatment regimen; MDS dx; awaiting further information regarding stem cell transplant). denies: Depression - Hematologic/Lymphatic Hematologic/Lymph: reports: Anemia (12.7) - All Other Systems All Other Systems: reports: Reviewed and negative Physical Exam - Vital Signs Temperature: 37.3 C Pulse Rate: 80 Respiratory Rate: 16 O2 Saturation: 99 Blood Pressure: 120/51 - Physical Exam General Appearance: positive: No acute distress, Alert Eyes Bilateral: positive: Other (mild periorbital edema) ENT: positive: No signs of dehydration. negative: Oral lesions Neck: positive: Trachea midline Respiratory: positive: No respiratory distress Abdomen: positive: Soft, Other (rounded) Skin: positive: Pallor, Dryness Extremities: negative: Pedal edema Neurologic/Psychiatric: positive: Oriented x3, Depressed mood/affect, Flat affect Palliative Care - POLST Patient has POLST: No Pain: Pain worsening, Location (left arm; limited mobility; reports severe but not wanting to use opioids; trialed APAP without good response) Tiredness/Fatigue: Moderate (4-6) Drowsiness/Sedation: Moderate (4-6) Nausea: None (noted with dex) Anorexia: Mild (1-3) Dyspnea: None Depression: Moderate (4-6) (feeling discouraged with pain and progressive dx) Anxiety: Mild (1-3) Feelings of wellbeing/Perceived Quality of Life: Poor, Worsening Sleep: Sleep improved (using) Constipation: Yes, Intermittent constipation Performance Status: Patient more sedentary with decreased activity tolerance. Most notable change has been with his mobility of his left arm. This is kept him from doing his woodworking, and other activities. He is unable to raise arm past shoulder. - Palliative Care Discussion: Patient is feeling discouraged, reports if this is his persistent quality of life, he will be very discouraged and feels like this may not be worth continuing. He is willing to put the time and trial the new medication. He does understand his treatment is palliative in nature, is hoping for a good response. He has been discouraged with his increased pain and impact on his quality of life. Results - Lab Results Lab results reviewed: Yes Impression and Recommendations - Palliative Care Impression: This is a 71-year-old gentleman with known multiple myeloma, now with progression of disease, with exacerbation of pain in his left humeral area. Patient also presents now with MDS, and complications regarding treatment with persistent pancytopenia. Patient is currently just now started on his polymist last week, unfortunately has developed a diffuse rash, is struggling in the context of defining quality of life issues. Palliative care meeting with patient for ongoing support for symptom management. Recommendations/Counseling Done: 1. Pain of neoplastic origin. Patient's baseline pregabalin is 100 mg 3 times daily for lower back pain, we discussed could trial this to increase for his arm pain. Instructed to increase pregabalin 50 mg every 3 days into a total of 150 mg 3 times daily. May or may not turn down the "volume". Patient is very opioid adverse, given his negative reactions with sedation, altered mental status, and constipation. Patient has had a good response with radiation. In consult with Dr. Ron MATT, discussed concerns regarding radiation and patient's escalating pain. She is concerned he would have a delay in treatment if his bone marrow is compromised further, we did discuss if patient were able to have a single dose fraction, this may be a possibility. We will go ahead and send a referral to Dr. Cooper, will send note and follow-up with phone call regarding concerns of oncology. 2. Constipation. Patient continues with fluctuating constipation, attributes it to side effects of treatment, is using his MiraLAX and titrating accordingly. 3. Rash. This is attributed to his polymist, reports it is quite diffuse but is worsening. Patient has been taking Benadryl 25 mg twice daily, and consult with oncology, does not want to do further steroids as he is getting dexamethasone as a pulse for his treatment for multiple myeloma. We will go ahead and trial some topical triamcinolone 0.1% ointment, encouraged to massage in to be able to address pruritus. If worsens, as far as area covered, persistence of or development of lesions, or worsening distress to contact either triage nurse or myself. 4. Advanced care planning. Patient does have his advance care planning documents done, currently is awaiting response to treatment. Patient does understand his treatment is palliative in nature. Is just stressed or discouraged with his current quality of life. We will continue to monitor alongside. 45 minutes Review of chart, review of oncology notes labs and imaging, coordination of care with oncology team, [id number] with patient for pain and symptom management.
== END 2021-08-04 09:31 | disposition home or self-care (01) ==
LOC: PC 09:30
PROVIDERS: ATTEND Nurse Practitioner Adult Health
DX: Z51.5 Encounter for palliative care (principal); G89.3 Neoplasm related pain (acute) (chronic); M54.50 Low back pain, unspecified; C90.00 Multiple myeloma not having achieved remission; L27.0 Generalized skin eruption due to drugs and medicaments taken internally; T50.995A Adverse effect of other drugs, medicaments and biological substances, initial encounter; G62.0 Drug-induced polyneuropathy; T45.1X5A Adverse effect of antineoplastic and immunosuppressive drugs, initial encounter; K59.00 Constipation, unspecified
CPT/HCPCS: 99215

== ENCOUNTER 2021-08-08 08:00 | Outpatient (CLI) | payer MEDICARE, OTHER ==
--- NOTE | 2021-08-08 13:19 | XRAY Report ---
PROCEDURE: Shoulder 3 View LT INDICATIONS: PAIN IN LEFT SHOULDER TECHNIQUE: 3 views of the shoulder were acquired. COMPARISON: Correlation is made with bone survey, 08/18/2015. FINDINGS: Bones: There is a moderately displaced, comminuted, slightly impacted fracture of the left proximal h umeral shaft. Within the fractured region, there is decreased density of the bone seen. No additional fractures can be seen. No additional focally suspicious bone marrow lesions are seen. No dislocation can be seen. The visualized ribs appear intact. Soft tissues: No suspicious soft tissue calcifications. The visualized lung demonstrates a normal a ppearance. IMPRESSION: Comminuted, moderately displaced fracture of the left proximal humeral shaft, with mild impaction. Decreased density is seen of the bone at the fracture site, which is consistent with a pathologic fra cture in this patient who gives a history of multiple myeloma. Note: By tech report, Meri Yancey has already reviewed these images and is aware of the fracture at t he time of this dictation. Reviewed by: Jacky Mendez MD on 08/08/2021 12:17 PM [facility] Approved by: Jacky Mendez MD on 08/08/2021 12:17 PM [facility] Station ID: [id number]
== END 2021-08-08 23:59 | disposition home or self-care (01) ==
LOC: DI.S 08:00
PROVIDERS: ATTEND Physician Assistant Medical
DX: S42.352A Displaced comminuted fracture of shaft of humerus, left arm, initial encounter for closed fracture (principal)

== ENCOUNTER 2021-09-02 14:54 | Outpatient (CLI) | payer MEDICARE, OTHER ==
--- NOTE | 2021-09-03 06:25 | CONSULTATION NOTE ---
Palliative Care Follow Up - Referral Referring Provider: Dr. 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 He was recently started on carfilzomib 07/09 as well as pomalidomide 08/07 and receiving weekly dexamethasone 20 mg on Fridays. Patient received his carfilzomib yesterday, is feeling somewhat foggy today, and also is having some rash, not as severe as it was, in his scalp and his shins. He does respond to the triamcinolone cream. Patient had developed increased pain in his left upper arm with limited mobility, he was pending radiation when he had a fall and sustained a pathological fracture. This occurred on 08/08/2021, and it was a commuted moderately displaced fracture of the left proximal humeral shaft with mild impaction. He did see the orthopedist Dr. Duarte, there was some [id number] is whether to have it pinned or not, currently it is being followed radiologically. He is having improved pain and function particularly after receiving radiation on 08/20. It does still limit his functionality, particularly in the context he likes to do woodworking. He currently is on pregabalin 150 mg 3 times daily, is unclear if this is helping or not, patient is quite opioid adverse. He feels currently it is tolerable. Patient also has underlying peripheral neuropathy from previous treatment, with chronic back pain from history of plasmacytoma involving L5. This has worsened some, most likely related to positioning in bed. He is still able to ambulate and is walking 1/2 mile a day but limited by his back pain. He continues with pancytopenia, attributed to MDS. 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 He is to his for 25 years, has 2 stepchildren and 2 grandchildren with good relationships. Unfortunately currently is unable to participate in his hobby of woodworking, he is reading more. He does find himself much more sedentary which is not his baseline with increased depression. Medications/Allergies - Medications Home Medications: Ambulatory Orders Medication Instructions Recorded Confirmed Lisinopril 20 mg PO DAILY 06/10/15 08/25/21 Multivitamin [Multivitamins] 1 each PO DAILY 11/25/15 08/25/21 Calcium Carbonate [Calcium] 1 tab PO BID 10/04/17 08/25/21 Turmeric Root Extract [Turmeric] 1 cap PO DAILY 01/03/18 08/25/21 Tamsulosin HCl [Flomax] 0.4 mg PO DAILY 11/13/19 08/25/21 Acyclovir 400 mg PO BID 12/10/19 08/25/21 Rivaroxaban [Xarelto] 20 mg PO DAILY 04/24/20 08/25/21 Pregabalin [Lyrica] 150 mg PO TID MDD titrating up 09/02/20 08/25/21 Sildenafil Citrate [Sildenafil] 100 mg PO PRN PRN 09/20/20 08/25/21 Ibuprofen [Motrin] 400 mg PO Q4HR PRN 03/24/21 08/25/21 Melatonin/Pyridoxine [Melatonin 5 1 tab PO QPM 05/22/21 08/25/21 mg Tablet] Naloxone HCl [Narcan] 1 spray AYLIN ONCE PRN 05/22/21 08/25/21 Senna [Senokot] 2 tab PO BID PRN MDD 8 tabs 05/22/21 08/25/21 Ondansetron [Zuplenz] 8 mg PO DAILY 06/03/21 08/25/21 dexAMETHasone [Decadron] 20 mg PO .WEEKLY MDD Fridays07/09/21 08/25/21 polyethylene glycoL 3350 [Miralax] 17 gm PO DAILY PRN 07/09/21 08/25/21 Pomalidomide [Pomalyst] 4 mg PO .1 TAB 21 DAYS 08/05/21 08/25/21 Triamcinolone 0.1% Oint [Kenalog 1 applic TOP BID PRN 08/05/21 08/25/21 0.1% Oint] diphenhydrAMINE [Benadryl] 25 mg PO BID 08/05/21 08/25/21 - Allergies Allergies/Adverse Reactions: Allergies Allergy/AdvReac Type Severity Reaction Status Date / Time peanut Allergy Severe Unknown Verified 03/24/21 09:25 Review of Systems - Constitutional Constitutional: reports: Fatigue, Weight stable. denies: Fever, Chills - Eyes Eyes: reports: Vision loss, Corrective lenses - Ears, Nose & Throat Ears, Nose & Throat: reports: Hearing loss, Other (jaw pain almost resolved) - Cardiovascular Cardiovascular: reports: Edema (almost resolved several weeks in Left ankle/leg). denies: Chest pain - Respiratory Respiratory: denies: SOB at rest - Gastrointestinal Gastrointestinal: reports: Constipation (noted with new tx; pre medicates with Miralax, managing well), Good appetite. denies: Nausea, Reflux/heartburn - Genitourinary Genitourinary: reports: Other (hx of bladder cancer; follow up with urology yearly) - Musculoskeletal Musculoskeletal: reports: Back pain, Stiffness, Limited range of motion (left arm), Muscle weakness - Integumentary Integumentary: reports: Dryness, Hair changes (over saleh/jaw; scalp with rash) - Neurological Neurological: reports: Numbness (hands and feet from previous tx), Memory problems (improved off opioids; feeling foggy today attributes to side effects of cancer tx yesterday) - Psychiatric Psychiatric: denies: Depression - Hematologic/Lymphatic Hematologic/Lymph: reports: Anemia (11.5) - All Other Systems All Other Systems: reports: Reviewed and negative Physical Exam - Vital Signs Pulse Rate: 91 Respiratory Rate: 18 Blood Pressure: 134/63 - Physical Exam General Appearance: positive: No acute distress, Alert Eyes Bilateral: positive: No scleral icterus, Other (periorbital edema mild) ENT: positive: No signs of dehydration Neck: positive: Trachea midline Respiratory: positive: No respiratory distress Abdomen: positive: Soft Skin: positive: Dryness, Rash (noted on scalp; reports on shins) Extremities: positive: Pedal edema (trace on left) Neurologic/Psychiatric: positive: Oriented x3, Mood/affect nml, Flat affect Palliative Care - POLST Patient has POLST: No POLST Status: Full Code Pain: Pain improved, Location (left arm/fx site), Severity (11/26), Comment (currently on pregablin 150 mg TID) Tiredness/Fatigue: Mild (1-3) Drowsiness/Sedation: Mild (1-3) Nausea: None Anorexia: None Dyspnea: None Depression: Mild (1-3) Anxiety: Mild (1-3) Feelings of wellbeing/Perceived Quality of Life: Fair, Worsening Sleep: Sleep improved (using THC/CBD/melatonin on dex days with good results) Constipation: Yes, Managed Performance Status: Patient with some return of function in his left lower arm, is wondering about physical therapy. May be too soon in his healing to consider this, but will reach out. He is still taking walks, is limited by his back pain, able to do about 1/2 mile. Is finding it somewhat frustrating to be sedentary but is able to meet his ADLs and drive. - Palliative Care Discussion: Patient continues with treatment for his multiple myeloma, is wondering about his MDS no further follow-up from [facility] at this point in time. He has had a series of unfortunate events with his break and fall, is finding the restrictions both in the pain previously and now with the fracture frustrating. Denies worsening depression or anxiety, continues to take things as they come. Is curious about final outcome and reflective of increased time commitment. Does share with his regarding his journey, and clear if she understands the seriousness or impact, psychosocial support offered. Results - Lab Results Lab results reviewed: Yes Lab and Imaging Results: CMP within normal limits, creatinine 0.8, bilirubin up at 1.1, total protein down to 6.4, WBC 2.2, hemoglobin 11.5, hematocrit 34.9, neutrophil count 0.9 Impression and Recommendations - Palliative Care Impression: This is a 71-year-old gentleman with known multiple myeloma, now with progression of disease. He is currently receiving new treatment, with response. Unfortunately he had a fracture at his lesion of his left humeral area, but also has received radiation with some improvement in pain. He has lost some function, is interested in therapy at point appropriate. Palliative care continue to meet with patient for ongoing support for symptom management and psychosocial support. Recommendations/Counseling Done: 1. Pain of neoplastic origin. This is multifactorial. Patient's baseline pregabalin was 100 mg 3 times daily for lower back pain, we did trial increasing it to 150 mg 3 times daily. Unfortunately in the meantime patient also had a traumatic/pathologic fracture at the bone lesion site, has since received radiation with some improvement in pain and continues to improve. Counseling provided regarding weighing benefits and burdens of continuing at higher dose, will complete his current regimen, and transition back to 100, will let me know if he has an escalation in his pain. 2. Humeral fracture. Patient is being followed by Dr. Hurst his PCP, with expectation of a follow-up x-ray. Will reach out regarding physical therapy in the context of timing. Patient is interested in maintaining function and follow-up. 3. Rash. This is attributed to his pomalidomide, it has been quite diffuse. Had improved but now is worsening with next round of treatment. Still on the scalp, reports now on his grove. Is responding to triamcinolone 0.1 ointment, reminded to use on a regular basis. 4. Advanced care planning. Patient does have advanced care planning documents done, continues to await response to treatment and next steps. Patient does understand his treatment is palliative in nature but expected prolonged prognosis. We will continue to monitor as patient continues. 45 minutes review of chart, x-ray, ED report, oncology notes [id number] with patient, counseling provided regarding pain and symptom management and anticipatory guidance
== END 2021-09-02 14:55 | disposition home or self-care (01) ==
LOC: PC 14:54
PROVIDERS: ATTEND Nurse Practitioner Adult Health
DX: Z51.5 Encounter for palliative care (principal); G89.3 Neoplasm related pain (acute) (chronic); C90.00 Multiple myeloma not having achieved remission; M54.50 Low back pain, unspecified; M84.750 Atypical femoral fracture, unspecified; L27.1 Localized skin eruption due to drugs and medicaments taken internally; T45.1X5A Adverse effect of antineoplastic and immunosuppressive drugs, initial encounter
CPT/HCPCS: 99215

== ENCOUNTER 2021-10-05 08:00 | Outpatient (CLI) | payer MEDICARE, OTHER ==
--- NOTE | 2021-10-05 12:22 | XRAY Report ---
PROCEDURE: Humerus LT INDICATIONS: FRACTURE OF LEFT HUMERUS TECHNIQUE: AP and lateral views of the humerus were acquired. COMPARISON: August 08, 2021 FINDINGS: BONES: Increased callus formation about the previously demonstrated proximal humeral fracture. SOFT TISSUES: Edema about the fracture site. IMPRESSION: 1.Ongoing healing of the patient's proximal humeral fracture. Reviewed by: John Willis MD on 10/05/2021 12:21 PM [facility] Approved by: John Willis MD on 10/05/2021 12:21 PM [facility] Station ID: [id number]
== END 2021-10-05 23:59 ==
LOC: DI.S 08:00
PROVIDERS: ATTEND Family Medicine
DX: S42.202D Unspecified fracture of upper end of left humerus, subsequent encounter for fracture with routine healing (principal)

== ENCOUNTER 2021-10-06 14:36 | Outpatient (CLI) | payer MEDICARE, OTHER ==
--- NOTE | 2021-10-06 19:29 | CONSULTATION NOTE ---
Palliative Care Follow Up - Referral Referring Provider: Dr. 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 He is currently on carfilzomib as well as Pomalidomide, and receiving weekly dexamethasone 20 mg on Fridays. He is having a good response, and is encouraged. He does have side effects of persi stent fatigue for few days, insomnia and irritability with weekly dexamethasone, and intermittent constipation managed with MiraLAX. He does have a left upper humerus pathologic fracture, which she has received radiation for. He did have a x-ray, but does still show edema at the fracture site, but ongoing healing. He has been doing some range of motion and is more able to use it. The pain continues to resolve and only exacerbated by overuse. He is feeling quite well overall. Patient does have chronic low back pain, as a result of a history of plasmacytoma involving L5 spine, s/p surgery. This is limiting as far as his ability to ambulate long distances, though is able to do 1/2 to 1 mile. He reports is often just a dull ache, 2 out of 10. He is currently on pregabalin 100 mg 3 times daily, did not get improvement with increase for his arm pain. He has titrated off of it before, though with exacerbation of his pain. Continuing on current regimen. Past Medical History: Autologous stem cell transplant 06/04, DVT of left leg 10/08 currently on Xarelto, multiple myeloma, hypertension, colon polyps, BPH, chronic vision loss, history of bladder cancer, fatigue, chronic back pain, psoriasis, history of smoking, recent diagnosis of MDS Social History - Living Situation Living arrangement: At home Living Situation: With spouse/s.o. 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 Currently he is doing puzzles. He finds this quite satisfying. He also has a motorcycle, he has been able to write this. Awaiting better weather. He has a significant other/spouse, they have been for 25 years, has 2 stepchildren and grandchildren with good relationships. Medications/Allergies - Medications Home Medications: Ambulatory Orders Medication Instructions Recorded Confirmed Lisinopril 20 mg PO DAILY 06/10/15 09/29/21 Multivitamin [Multivitamins] 1 each PO DAILY 11/25/15 09/29/21 Calcium Carbonate [Calcium] 1 tab PO BID 10/04/17 09/29/21 Turmeric Root Extract [Turmeric] 1 cap PO DAILY 01/03/18 09/29/21 Tamsulosin HCl [Flomax] 0.8 mg PO DAILY 11/13/19 09/29/21 Acyclovir 400 mg PO BID 12/10/19 09/29/21 Rivaroxaban [Xarelto] 20 mg PO DAILY 04/24/20 09/29/21 Pregabalin [Lyrica] 100 mg PO TID MDD titrating up 09/02/20 09/29/21 Sildenafil Citrate [Sildenafil] 100 mg PO PRN PRN 09/20/20 09/29/21 Ibuprofen [Motrin] 400 mg PO Q4HR PRN 03/24/21 09/29/21 Melatonin/Pyridoxine [Melatonin 5 1 tab PO QPM 05/22/21 09/29/21 mg Tablet] Naloxone HCl Nasal [Narcan] 1 spray AYLIN ONCE PRN 05/22/21 09/29/21 Senna [Senokot] 2 tab PO BID PRN MDD 8 tabs 05/22/21 09/29/21 Ondansetron [Zuplenz] 8 mg PO DAILY 06/03/21 09/29/21 dexAMETHasone [Decadron] 20 mg PO .WEEKLY MDD Fridays07/09/21 09/29/21 polyethylene glycoL 3350 [Miralax] 17 gm PO DAILY PRN 07/09/21 09/29/21 Pomalidomide [Pomalyst] 4 mg PO .1 TAB 21 DAYS 08/05/21 09/29/21 Triamcinolone 0.1% Oint [Kenalog 1 applic TOP BID PRN 08/05/21 09/29/21 0.1% Oint] diphenhydrAMINE [Benadryl] 25 mg PO BID 08/05/21 09/29/21 - Allergies Allergies/Adverse Reactions: Allergies Allergy/AdvReac Type Severity Reaction Status Date / Time peanut Allergy Severe Unknown Verified 03/24/21 09:25 Review of Systems - Constitutional Constitutional: reports: Fatigue (worse first few days after treatment), Weight loss (106.4), Weight stable. denies: Fever, Chills - Eyes Eyes: reports: Vision loss, Corrective lenses - Ears, Nose & Throat Ears, Nose & Throat: reports: Hearing loss, Other (jaw pain almost resolved) - Cardiovascular Cardiovascular: reports: Edema ( Left ankle/leg trace). denies: Chest pain - Respiratory Respiratory: denies: SOB at rest - Gastrointestinal Gastrointestinal: reports: Constipation (noted with new tx; pre medicates with Miralax, managing well), Good appetite. denies: Nausea, Reflux/heartburn - Genitourinary Genitourinary: reports: Other (hx of bladder cancer; follow up with urology yearly) - Musculoskeletal Musculoskeletal: reports: Back pain, Stiffness, Limited range of motion (left arm but improving), Muscle weakness - Integumentary Integumentary: reports: Dryness, Hair changes (over saleh/jaw; scalp with rash) - Neurological Neurological: reports: Numbness (hands and feet from previous tx) - Psychiatric Psychiatric: denies: Depression - Hematologic/Lymphatic Hematologic/Lymph: reports: Anemia (11.9). denies: Recurrent infections - All Other Systems All Other Systems: reports: Reviewed and negative Physical Exam - Vital Signs Temperature: 36.3 C Pulse Rate: 75 Respiratory Rate: 16 Blood Pressure: 130/65 - Physical Exam General Appearance: positive: No acute distress, Alert Eyes Bilateral: positive: No scleral icterus, Other (periorbital edema mild) ENT: positive: No signs of dehydration Neck: positive: Trachea midline Respiratory: positive: No respiratory distress Abdomen: positive: Soft Skin: positive: Dryness Extremities: positive: Pedal edema (trace on left) Neurologic/Psychiatric: positive: Oriented x3, Mood/affect nml, Flat affect Palliative Care - POLST Patient has POLST: No POLST Status: Full Code Pain: Pain unchanged (low back), Pain improved (left arm), Severity (2/10) Tiredness/Fatigue: Mild (1-3) Drowsiness/Sedation: None Nausea: None Anorexia: None Dyspnea: None Depression: Mild (1-3) Anxiety: Mild (1-3) Feelings of wellbeing/Perceived Quality of Life: Good, Acceptable, Improved Sleep: Sleeps well Constipation: Yes, Managed, Intermittent constipation Performance Status: Patient is committed to his ongoing physical therapy, does help with his back pain and endurance. Does not feel like he needs physical therapy for his left arm, does do a few exercises, feels like he is managing. Patient is independent in his ADLs - Palliative Care Discussion: Patient is feeling upbeat, numbers are improving though he is somewhat neutropenic today. He continues with his treatment for multiple myeloma. He is able to return to his woodworking which is a good distraction and brings him bhargav. Discussion regarding just the changes in the role the impact of COVID and COVID restrictions on quality of life issues. Patient has been coming every other week for treatment, is hoping at some point can return to monthly visits as it makes life more doable. Is encouraged overall. Results - Lab Results Lab results reviewed: Yes Impression and Recommendations - Palliative Care Impression: This is a 71-year-old gentleman with known multiple myeloma, currently getting treatment for progression of disease. He is having a good response, pathologic fracture of left humeral area and healing. Presents with low symptom burden. Palliative care continue to provide support for patient, for symptom management and psychosocial support., And anticipatory guidance Recommendations/Counseling Done: 1. Pain of neoplastic origin. This is multifactorial, patient is back to his baseline pregabalin 100 mg 3 times daily, pain and pathologic fracture of left humeral continue to improve. Patient satisfied with his current regimen, no changes made. 2. Left humeral fracture. Patient's x-ray shows healing, there is still some continued edema at fracture site. He is doing range of motion exercises, PCP showed him a few strengthening we will continue with these, does not need physical therapy at this point in time. 3. Depression. Patient presents with elevated mood and engagement today. Is feeling quite positive. Quality of life currently improved. Patient presents with low symptom burden, psychosocial support and active listening provided. 4. Advanced care planning. Patient does have advance care planning documents done, continues to improve on current treatment. Patient does understand his treatment is palliative in nature, but is expected prolonged prognosis and hoping for the best. We will continue to monitor patient, plan to visit in 2 months given low symptom burden. Patient will contact sooner if needed. 5. Neutropenia. Patient presents with ANC of 0.7 and WBC of 1.8 today. Reviewed infection precautions and need to access urgent emergent care if fever or chills, or suspected COVID symptoms given his current status. 45 minutes with review labs, x-rays, oncology notes. [id number] with patient for review of symptoms, provide counseling and anticipatory guidance.
== END 2021-10-06 14:37 | disposition home or self-care (01) ==
LOC: PC 14:36
PROVIDERS: ATTEND Nurse Practitioner Adult Health
DX: Z51.5 Encounter for palliative care (principal); Z87.891 Personal history of nicotine dependence; G89.3 Neoplasm related pain (acute) (chronic); C90.00 Multiple myeloma not having achieved remission; M84.750 Atypical femoral fracture, unspecified; F32.A Depression, unspecified; D70.9 Neutropenia, unspecified
CPT/HCPCS: 99215

== ENCOUNTER 2021-12-08 12:23 | Outpatient (CLI) | payer MEDICARE, OTHER ==
--- NOTE | 2021-12-08 13:54 | CONSULTATION NOTE ---
Palliative Care Follow Up - Referral Referring Provider: Dr. 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 He is currently on carfilzomib as well as pomalidomide, and receiving weekly dexamethasone 20 mg on Fridays. He is tolerating this, though with some persistent and building fatigue. Patient does have chronic low back pain as result of history of plasmacytoma involving L5 spine s/p surgery. Patient though has developed increasing lower back pain radiating to the right hip, describes it as more pressure. It has been building over 2 months, and more acutely over the last couple weeks, at rest it is a dull ache and feels like pressure on the right side, is unable to sleep on this without positioning carefully, and does awaken in pain. Patient is very opioid adverse, is has horrible side effects to them. He is trying to tolerate, though does have increased sciatica-like pain radiating down his right leg short and intermittent with walking or standing. He has not lost any function in this. He has in the past had injections on the left side for sciatica, with good response but this is been over 3 to 4 years. Concern as patient has had rapidly developing bony lesions in the past, but have been very responsive to radiation. In consult with radiation with oncology, will go ahead and order MRI of the pelvis and lumbar spine. Past Medical History: Autologous stem cell transplant 06/04, DVT of left leg 10/08 currently on Xarelto, multiple myeloma, hypertension, colon polyps, BPH, chronic vision loss, history of bladder cancer, fatigue, chronic back pain, psoriasis, history of smoking, recent diagnosis of MDS Social History - Living Situation Living arrangement: At home Living Situation: With spouse/s.o. 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 He is working on [employer] currently, he finds this quite satisfying and distracting. He is also a motorcycle enthusiast, is waiting for better weather. He has a significant other/spouse to been for 25 years has 2 stepchildren and grandchildren all with good relationships. Medications/Allergies - Medications Home Medications: Ambulatory Orders Medication Instructions Recorded Confirmed Lisinopril 20 mg PO DAILY 06/10/15 11/24/21 Multivitamin [Multivitamins] 1 each PO DAILY 11/25/15 11/24/21 Calcium Carbonate [Calcium] 1 tab PO BID 10/04/17 11/24/21 Turmeric Root Extract [Turmeric] 1 cap PO DAILY 01/03/18 11/24/21 Tamsulosin HCl [Flomax] 0.8 mg PO DAILY 11/13/19 11/24/21 Acyclovir 400 mg PO BID 12/10/19 11/24/21 Rivaroxaban [Xarelto] 20 mg PO DAILY 04/24/20 11/24/21 Pregabalin [Lyrica] 100 mg PO TID MDD titrating up 09/02/20 11/24/21 Sildenafil Citrate [Sildenafil] 100 mg PO PRN PRN 09/20/20 11/24/21 Melatonin/Pyridoxine [Melatonin 5 1 tab PO QPM 05/22/21 11/24/21 mg Tablet] Naloxone HCl Nasal [Narcan] 1 spray AYLIN ONCE PRN 05/22/21 11/24/21 Senna [Senokot] 2 tab PO BID PRN MDD 8 tabs 05/22/21 11/24/21 Ondansetron [Zuplenz] 8 mg PO DAILY 06/03/21 11/24/21 dexAMETHasone [Decadron] 20 mg PO .WEEKLY MDD Fridays07/09/21 11/24/21 polyethylene glycoL 3350 [Miralax] 17 gm PO DAILY PRN 07/09/21 11/24/21 Pomalidomide [Pomalyst] 4 mg PO .1 TAB 21 DAYS 08/05/21 11/24/21 Triamcinolone 0.1% Oint [Kenalog 1 applic TOP BID PRN 08/05/21 11/24/21 0.1% Oint] - Allergies Allergies/Adverse Reactions: Allergies Allergy/AdvReac Type Severity Reaction Status Date / Time peanut Allergy Severe Unknown Verified 03/24/21 09:25 Review of Systems - Constitutional Constitutional: reports: Fatigue (worse first few days after treatment), Weight stable. denies: Fever, Chills - Eyes Eyes: reports: Vision loss, Corrective lenses - Ears, Nose & Throat Ears, Nose & Throat: reports: Hearing loss - Cardiovascular Cardiovascular: reports: Edema ( Left ankle/leg trace). denies: Chest pain - Respiratory Respiratory: reports: SOB with exertion. denies: Cough, SOB at rest - Gastrointestinal Gastrointestinal: reports: Constipation (noted with new tx; pre medicates with Miralax, managing well), Good appetite. denies: Nausea, Reflux/heartburn - Genitourinary Genitourinary: reports: Other (hx of bladder cancer; follow up with urology yearly) - Musculoskeletal Musculoskeletal: reports: Back pain, Stiffness, Muscle weakness - Integumentary Integumentary: reports: Dryness - Neurological Neurological: reports: Numbness (hands and feet from previous tx) - Psychiatric Psychiatric: reports: Anxiety. denies: Depression - Hematologic/Lymphatic Hematologic/Lymph: reports: Anemia (11.9). denies: Recurrent infections - All Other Systems All Other Systems: reports: Reviewed and negative Physical Exam - Physical Exam General Appearance: positive: No acute distress, Alert Eyes Bilateral: positive: No scleral icterus, Other (periorbital edema mild) ENT: positive: No signs of dehydration Neck: positive: Trachea midline Cardiovascular: positive: Regular rate & rhythm Respiratory: positive: No respiratory distress, Breath sounds nml, Diminished in bases. negative: Wheezes Abdomen: positive: Soft Skin: positive: Dryness Extremities: positive: Pedal edema (trace on left) Neurologic/Psychiatric: positive: Oriented x3, Mood/affect nml, Flat affect Palliative Care - POLST Patient has POLST: No POLST Status: Full Code Pain: Pain unchanged (pain persistent in lower back; no change in "background" pain using pregabalin 100 mg tid), Pain worsening, Severity (3/10), Comment (see HPI) Tiredness/Fatigue: Mild (1-3) Drowsiness/Sedation: Mild (1-3) Nausea: None Anorexia: None Dyspnea: Mild (1-3) Depression: None Anxiety: Mild (1-3) Feelings of wellbeing/Perceived Quality of Life: Fair, Acceptable, No change Sleep: Sleeps well, Sleep improved Constipation: Yes, Managed Performance Status: Patient without any further residual from his humerus fracture, is active and ambulatory, is limited on distance with ambulation because of his pain. Patient independent in ADLs. - Palliative Care Discussion: Patient appropriately concerned regarding his new and increasing pain, he continues his treatment of multiple myeloma. He has been able to return to his woodworking which brings him bhargav. He has had restrictions related to Covid, but is managing. Patient continues to build rapport and work with palliative care regarding coordination of care. Impression and Recommendations - Palliative Care Impression: This is a 71-year-old gentleman with known multiple myeloma, currently getting treatment with good response. Patient now presents with concern for worsening right hip/pelvic pain and increased lumbar discomfort with fluctuating "sciatica" right side. Palliative care continue provide support for patient symptom management and psychosocial support as well as anticipatory guidance. Recommendations/Counseling Done: 1. Pain of neoplastic origin. This is multifactorial, patient is back on his baseline pregabalin 100 mg 3 times daily for his background back pain. Now he presents with increasing pain in his right pelvic/hip area concern for multiple myeloma lesion, also concern patient describes some intermittent sciatica and has been responsive in the past to injections. He is feeling positive that would be something to add to his quality of life and treat pain. Patient is very opioid adverse. Coordination of care with oncology, will go ahead and order MRI of pelvis and lumbar spine. 2. Depression. Patient is with elevated mood and engagement, is doing pretty well despite his increasing symptom burden. 3. Pancytopenia. This is secondary to myelodysplastic syndrome, continue to monitor. 4. Advanced care planning. Patient goals continue to focus on treatment, focusing on quality of life issues, and continues to weigh benefits and burdens of treatments in the context quality of life. Patient has completed his end-of-life planning at the to this point, we will continue to revisit as changes occur, continue with palliative care to build rapport and follow for symptom management and goals of care. Already 5 minutes review of chart, oncology notes, labs, coordination of care with oncology team and oncologist, [id number] for pain and symptom management and evaluation with recommendations.
== END 2021-12-08 12:24 | disposition home or self-care (01) ==
LOC: PC 12:23
PROVIDERS: ATTEND Nurse Practitioner Adult Health
DX: Z51.5 Encounter for palliative care (principal); G89.3 Neoplasm related pain (acute) (chronic); C90.00 Multiple myeloma not having achieved remission; M54.40 Lumbago with sciatica, unspecified side; M25.551 Pain in right hip; F32.A Depression, unspecified; D61.818 Other pancytopenia
CPT/HCPCS: 99215